=== PATIENT | male | born 1935 | race Two or more races ===

== ENCOUNTER 2017-02-18 12:59 | Inpatient (IN) | payer MEDICARE, MEDICAID ==
[~2017-02-18] VITALS: Ht 182.9 cm; Wt 88.5 kg
--- NOTE | 2017-02-18 07:15 | NUR ---
RN CLOSING NOTES PATIENT IN BED RESTING, RESPONSIVE. NO ACUTE DISTRESS, NO SOB NOTED. DENIES PAIN OR DISCOMFORT. ALL NEEDS ATTENDED AND PROVIDED. KEPT PATIENT SAFE AND COMFORTABLE. BED IN LOW POSITION, LOCKED, SIDERAILS UPX2, HOB ELEVATED. ENDORSED TO NIGHT RN FOR SHIVANI. Addendum: 02/18/17 at 1916 by NADINE MCDONALD WRONG TIME
--- NOTE | 2017-02-18 13:11 | NUR ---
EL CC SOB. AAO4. 95% RA. NON LABORED RESP 20 RR/MIN.
[2017-02-18 13:30] LABS: BASOPHILS % (AUTO) 0.1 % (0.0-2.0); EOSINOPHILS # (AUTO) 0.5 /CMM (0.0-0.7); EOSINOPHILS % (AUTO) 6.1 % (0.0-6.0); HEMATOCRIT 36 % (39-51); HEMOGLOBIN 11.7 g/dL (13.5-17.5); LYMPHOCYTES # (AUTO) 0.6 /CMM (0.8-4.8); LYMPHOCYTES % (AUTO) 7.8 % (20.0-44.0); MEAN CORPUSCULAR HEMOGLOBIN 22 PG (26.0-33.0); MEAN CORPUSCULAR HGB CONC 33 g/dl (31.0-36.0); MEAN CORPUSCULAR VOLUME 67 fL (80-96); MONOCYTES # (AUTO) 0.6 /CMM (0.1-1.30); MONOCYTES % (AUTO) 7.2 % (2.0-12.0); NEUTROPHILS % (AUTO) 78.8 % (43.0-81.0); PLATELET COUNT (AUTO) 176 /CMM (150-450); RDW COEFFICIENT OF VARIATION 18.1 (11.5-15.0); RED BLOOD CELL COUNT(AUTO) 5.32 MIL/uL (4.5-6.0); WHITE BLOOD COUNT (AUTO) 7.7 K/uL (4.3-11.0)
[2017-02-18 13:34] LABS: CALCIUM, SERUM 8.8 mg/dL (8.5-10.1); CARBON DIOXIDE 28 mmol/L (21-32); CHLORIDE 104 mmol/L (98-107); CREATININE 1.4 mg/dL (0.6-1.3); GLUCOSE 113 mg/dL (74-106); POTASSIUM 3.6 mmol/L (3.5-5.1); SODIUM SERUM 139 mmol/L (136-145); UREA NITROGEN, BLOOD 18 mg/dL (7-18)
[2017-02-18 13:43] LABS: TROPONIN I < 0.017 ng/mL (0.00-0.056)
[2017-02-18 13:46] LABS: ALANINE AMINOTRANSFERASE 11 U/L (12-78); ALBUMIN 3.2 g/dL (3.4-5.0); ALKALINE PHOSPHATASE 64 U/L (46-116); ASPARTATE AMINOTRANSFERASE 14 U/L (15-37); B-TYPE NATRIURETIC PEPTIDE 10992 PG/ML (0-125); BILIRUBIN,DIRECT 0.2 mg/dL (0.0-0.2); BILIRUBIN,TOTAL 1.1 mg/dL (0.2-1.0); TOTAL PROTEIN, SERUM 6.7 g/dL (6.4-8.2)
[2017-02-18] MEDS ORDERED: FUROSEMIDE 40 MG/4 ML VIAL IV ONE (14:00)
[2017-02-18] MEDS ORDERED: FUROSEMIDE 40 MG/4 ML VIAL ONE (14:05)
[2017-02-18 14:06] LABS: INR 1.08 (0.87-1.13); PROTHROMBIN TIME 11.2 SECS (9.5-12.7)
--- NOTE | 2017-02-18 14:24 | NUR ---
TELE ROOM 319
--- NOTE | 2017-02-18 14:54 | NUR ---
CALLED REPORT TO 3RD FLOOR TO "NADINE" CHRISTOPHER. WAITING FOR ROOM TO BE CLEANED.
[2017-02-18] MEDS ORDERED: ZOLPIDEM TARTRATE 5 MG TABLET PO PRN (15:00)
[2017-02-18] MEDS ORDERED: HYDROCODONE/APAP 5/325MG 1 EACH TABLET PO PRN (15:00)
[2017-02-18] MEDS ORDERED: ACETAMINOPHEN 325 MG TABLET PO PRN (15:00)
[2017-02-18] MEDS ORDERED: MAGNESIUM HYDROXIDE 30 ML UDC PO PRN (15:00)
[2017-02-18] MEDS ORDERED: Z GUARD REMEDY 2 OZ OINT TP PRN (15:00)
[2017-02-18] MEDS ORDERED: ONDANSETRON HCL/PF 4 MG/2 ML VIAL IVP PRN (15:00)
[2017-02-18] MEDS ORDERED: MAG HYDROX/AL HYDROX/SIMETH 30 ML UDC PO PRN (15:00)
[2017-02-18 15:30] VITALS: BP 130/72
--- NOTE | 2017-02-18 15:30 | NUR ---
RN OPENING NOTES RECEIVED PATIENT FROM ER VIA [facility]. PATIENT A/OX4, AMBULATORY. NO ACUTE DISTRESS, NO SOB NOTED. DENIES PAIN OR DISCOMFORT. ON 2LPM O2 VIA NC, SATURATION 96%. IV SITE INTACT AND PATENT. AWAITING FOR MD'S ADMITTING ORDERS. KEPT PATIENT SAFE AND COMFORTABLE. BED IN LOW, LOCKED, SIDRAILS UP X2, HOB ELEVATED. WILL CONTINUE TO MONITOR ACCORDINGLY.
[2017-02-18 16:00] VITALS: BP 132/73
[2017-02-18 16:48] LABS: EOSINOPHILS % (MANUAL) 3 % (0-4); LYMPHOCYTES % (MANUAL) 10 % (16-48); MONOCYTES % (MANUAL) 2 % (0-11.0); NEUTROPHILS % (MANUAL) 85 (42-76)
[2017-02-18] MEDS ORDERED: ALBUTEROL FS 2.5 MG/3 ML VIAL.NEB NEB PRN (17:00)
[2017-02-18 17:31] LABS: APPEARANCE,URINE CLEAR (CLEAR); BILIRUBIN,URINE NEGATIVE (NEGATIVE); BLOOD, URINE 1+ Ery/uL (NEGATIVE); COLOR,URINE YELLOW (YELLOW); KETONES,URINE NEGATIVE (NEGATIVE); LEUKOCYTE ESTERASE ,URINE NEGATIVE (NEGATIVE); NITRITE, URINE NEGATIVE (NEGATIVE); PH,URINE 5.5 (5.0-8.0); PROTEIN,URINE 1+ mg/dl (NEGATIVE); UGLUCOSE NEGATIVE (NEGATIVE); UROBILINOGEN,URINE 0.2 EU/dL (0.2)
[2017-02-18] MEDS: ENOXAPARIN SODIUM 40 MG/0.4 ML DISP.SYRIN SQ SCH (18:11)
[2017-02-18] MEDS: FUROSEMIDE 40 MG/4 ML VIAL IV SCH (18:12)
[2017-02-18] MEDS: FERROUS SULFATE (325 MG) 325 MG/TAB TABLET PO SCH (18:12)
[2017-02-18] MEDS: ASPIRIN 81 MG TAB.CHEW PO SCH (18:15)
[2017-02-18 18:39] LABS: BACTERIA,URINE Rare /HPF (None Seen); RBC,URINE 0-2 /HPF (0-2); SQUAMOUS EPITHELIAL CELL,UR Few /HPF (None Seen); WBC,URINE 0-2 /HPF (0-3)
--- NOTE | 2017-02-18 19:16 | NUR ---
RN CLOSING NOTES PATIENT IN BED RESTING, RESPONSIVE. NO ACUTE DISTRESS, NO SOB NOTED. DENIES PAIN OR DISCOMFORT. ALL NEEDS ATTENDED AND PROVIDED. KEPT PATIENT SAFE AND COMFORTABLE. BED IN LOW POSITION, LOCKED, SIDERAILS UPX2, HOB ELEVATED. ENDORSED TO NIGHT RN FOR SHIVANI.
[2017-02-18] MEDS: ALBUTEROL FS 2.5 MG/3 ML VIAL.NEB NEB SCH (19:35)
[2017-02-18 20:00] VITALS: BP 108/53
[2017-02-18] MEDS: CARVEDILOL 3.125 MG TABLET PO SCH (21:23)
[2017-02-18] MEDS: ATORVASTATIN 10 MG TABLET PO SCH (21:23)
[2017-02-19] VITALS: BP 134/67
[2017-02-19] MEDS: ALBUTEROL FS 2.5 MG/3 ML VIAL.NEB NEB SCH ×4 (01:43→20:05)
[2017-02-19 04:00] VITALS: BP 129/68
--- NOTE | 2017-02-19 05:35 | NUR ---
RN NOTES No significant change in condition. Breathing treatment given as ordered. No acute respiratory distress noted. Skin warm and dry to touch. Pain medication given as ordered, c/o generalized body pain. Monitored effectiveness. All due meds given as ordered. All needs attended. Assisted to the bathroom. Will continue to monitor.
[2017-02-19 07:18] LABS: BASOPHILS % (AUTO) 0.2 % (0.0-2.0); EOSINOPHILS # (AUTO) 0.4 /CMM (0.0-0.7); EOSINOPHILS % (AUTO) 4.5 % (0.0-6.0); HEMATOCRIT 36 % (39-51); HEMOGLOBIN 11.4 g/dL (13.5-17.5); LYMPHOCYTES # (AUTO) 0.3 /CMM (0.8-4.8); LYMPHOCYTES % (AUTO) 3.5 % (20.0-44.0); MEAN CORPUSCULAR HEMOGLOBIN 22 PG (26.0-33.0); MEAN CORPUSCULAR HGB CONC 31 g/dl (31.0-36.0); MEAN CORPUSCULAR VOLUME 69 fL (80-96); MONOCYTES # (AUTO) 0.6 /CMM (0.1-1.30); NEUTROPHILS # (AUTO) 7.9 /CMM (1.8-8.9); NEUTROPHILS % (AUTO) 84.8 % (43.0-81.0); PLATELET COUNT (AUTO) 167 /CMM (150-450); RED BLOOD CELL COUNT(AUTO) 5.27 MIL/uL (4.5-6.0); WHITE BLOOD COUNT (AUTO) 9.3 K/uL (4.3-11.0)
[2017-02-19 07:30] LABS: CALCIUM, SERUM 8.8 mg/dL (8.5-10.1); CARBON DIOXIDE 27 mmol/L (21-32); CHLORIDE 102 mmol/L (98-107); CREATININE 1.4 mg/dL (0.6-1.3); GLUCOSE 113 mg/dL (74-106); MAGNESIUM 1.7 mg/dL (1.8-2.4); PHOSPHORUS 4.1 mg/dL (2.5-4.9); POTASSIUM 3.6 mmol/L (3.5-5.1); SODIUM SERUM 138 mmol/L (136-145); UREA NITROGEN, BLOOD 23 mg/dL (7-18)
[2017-02-19 07:38] LABS: CHOLESTEROL 106 mg/dL (<200); HDL CHOLESTEROL 37 mg/dL (40-60); LDL 66 mg/dL (0-99); THYROID STIMULATING HORMONE 1.093 uIU/mL (0.358-3.74); TRIGLYCERIDES 61 mg/dL (30-150)
[2017-02-19 07:51] LABS: IRON, SERUM 21 ug/dl (50-175); TOTAL IRON BINDING CAPACITY 324 ug/dl (250-450)
--- NOTE | 2017-02-19 07:58 | NUR ---
RN INITIAL NOTES RECEIVED RESIDENT SITTING UP AT THE EDGE OF BED. A/O X4, RESPIRATIONS ARE EVEN AND UNLABORED, NOT IN ANY ACUTE DISTRESS NOTED. ASSISTED PT WITH TRANSFER FROM BED TO CHAIR. PT IS CURRENTLY RECEIVING BREATHING TX AND TOLERATING WELL. DENIES ANY PAIN AT THIS TIME. PT KEPT COMFORTABLE. REMINDED PT TO USE CALL LIGHT WHEN ASSISTANCE IS NEEDED, CALL LIGHT IS LEFT WITHIN REACH.
[2017-02-19 08:00] VITALS: BP 144/83
[2017-02-19] MEDS: FUROSEMIDE 40 MG/4 ML VIAL IV SCH ×4 (08:34→16:51)
[2017-02-19] MEDS: ASPIRIN 81 MG TAB.CHEW PO SCH (08:35)
[2017-02-19] MEDS: PANTOPRAZOLE 40 MG TABLET.DR PO SCH (08:36)
[2017-02-19] MEDS: FERROUS SULFATE (325 MG) 325 MG/TAB TABLET PO SCH (08:37)
[2017-02-19] MEDS: SENNOSIDES/DOCUSATE SODIUM 1 TAB TABLET PO SCH (08:37)
[2017-02-19] MEDS: CARVEDILOL 3.125 MG TABLET PO SCH ×2 (08:37→20:58)
[2017-02-19] MEDS: ENOXAPARIN SODIUM 40 MG/0.4 ML DISP.SYRIN SQ SCH (08:38)
[2017-02-19 09:43] LABS: TROPONIN I < 0.017 ng/mL (0.00-0.056)
[2017-02-19 09:44] VITALS: BP 144/83
--- NOTE | 2017-02-19 09:53 | NUR ---
RN NOTES CLARIFIED LASIX ORDER WITH PHARMACY, PER PHARMACY START ADMINISTRATION OF Q4H AT 1300 PT ALREADY HAD 40MG IN AM
[2017-02-19] MEDS: POTASSIUM CHLORIDE 20 MEQ TAB.PRT.SR PO SCH ×3 (10:27→11:25)
[2017-02-19] MEDS: Magnesium 1GM/D5W 100ML PREMIX 100 ML IV SCH ×2 (10:27→10:52)
[2017-02-19] MEDS: SOD FERRIC GLUC 125 MG in IV NS 0.9% 100 ML IV SCH (14:56)
[2017-02-19 15:03] LABS: APPEARANCE,URINE SL CLOUDY (CLEAR); BILIRUBIN,URINE NEGATIVE (NEGATIVE); BLOOD, URINE 2+ Ery/uL (NEGATIVE); COLOR,URINE YELLOW (YELLOW); KETONES,URINE NEGATIVE (NEGATIVE); LEUKOCYTE ESTERASE ,URINE TRACE (NEGATIVE); NITRITE, URINE NEGATIVE (NEGATIVE); PROTEIN,URINE 1+ mg/dl (NEGATIVE); UGLUCOSE NEGATIVE (NEGATIVE); UROBILINOGEN,URINE 0.2 EU/dL (0.2)
[2017-02-19 15:38] LABS: BACTERIA,URINE None seen /HPF (None Seen); SQUAMOUS EPITHELIAL CELL,UR Rare /HPF (None Seen)
[2017-02-19 15:48] LABS: EOSINOPHIL,URINE None Seen
[2017-02-19 15:53] LABS: CREATININE, URINE 114.4 MG/DL (30.0-125.0); URINE TOTAL PROTEIN 52.3 mg/dL (0-11.9)
[2017-02-19 16:00] VITALS: BP 148/74
--- NOTE | 2017-02-19 17:55 | NUR ---
patient lives at home with his best friend. Prior to admission, patient was ambulatory and independent with adls'.He has a cane and a walker which he utilized as needed for mobility. Current plan is to return home once discharge. Addendum: 02/19/17 at 1756 by ANASTACIA MARTINEZ RN Amended: Links added.
--- NOTE | 2017-02-19 18:50 | NUR ---
RN MS CLOSING NOTES ALL NEEDS MET AND ANTICIPATED. A/O X3, RESPIRATIONS ARE EVEN AND UNLABORED. NOT IN ANY ACUTE DISTRESS NOTED. CONTINUES ON O2 @3L/MIN VIA NC, SATURATING ABOVE 93%. HOB KEPT ELEVATED TO FACILITATE BREATHING, ENCOURAGED PT TO PERFORM PURSED LIP BREATHING WHEN FEELING SHORT OF BREATH. PT ABLE TO PERFORM RETURN DEMONSTRATION. PT DENIES ANY AT THIS TIME. ENCOURAGED RESIDENT TO ELEVATE BLE WHILE IN BED TO DECREASE EDEMA, PT IS COMPLIANT. WILL ENDORSE TO NEXT SHIFT FOR CONTINUITY OF CARE.
--- NOTE | 2017-02-19 19:30 | NUR ---
MS RN NOTES RECEIVED SITTING ON EDGE OF BED,A/O X 2,BREATHING NON LABORED,O2 SAT 94$ ON 4L/NC.SALINE LOCK LEFT HAND INTACT AND PATENT.NOTED ON AND OFF PRODUCTIVE COUGH,RT AT BEDSIDE,TO ADMINISTER BREATHING TREATMENT SCHEDULED.ABLE TO WALK TO THE BATHROOM WITH ASSIST.FALL PRECAUTION OBSERVED,BED ON LOWEST POSITION AND LOCKED.CALL LIGHT IN REACH,NEEDS ANTICIPATED.
[2017-02-19 20:00] VITALS: BP 131/61
[2017-02-19] MEDS: ATORVASTATIN 10 MG TABLET PO SCH (20:58)
--- NOTE | 2017-02-19 21:19 | NUR ---
MS RN NOTES C/O NAUSEA,MEDICATED WITH ZOFRAN 4MG IVP ORDERED.
--- NOTE | 2017-02-19 22:30 | NUR ---
MS RN NOTES SITTING ON CHAIT THIS TIME,CLAIMED HE FEELS BETTER WHEN SITTING
--- NOTE | 2017-02-20 01:30 | NUR ---
MS RN NOTES RT AT BEDSIDE TO ADMINISTER BREATHING TREATMENT SCHEDULED
[2017-02-20] MEDS: ALBUTEROL FS 2.5 MG/3 ML VIAL.NEB NEB SCH ×4 (01:51→20:03)
--- NOTE | 2017-02-20 04:00 | NUR ---
MS RN NOTES SLEEPING,NOT IN ANY FORM OF DISTRESS,KEPT WARM AND COMFORTABLE.
--- NOTE | 2017-02-20 06:11 | NUR ---
MS RN NOTES STILL WITH ON AND OFF PRODUCTIVE COUGH,MILD CONGESTION.MANAGE WITH BREATHING TREATMENT SCHEDULED.SLEPT WITH INTERVALS.O2 IN USED.DAILY WEIGHT DONE AND RECORDED.STRICT I AND O'S EMPHASIZED.CALL LIGHT IN REACH.WILL CONTINUE TO MONITOR BREATHING STATUS.WILL ENDORSE TO DAY NURSE FOR SHIVANI.
[2017-02-20 06:43] LABS: EOSINOPHILS # (AUTO) 0.3 /CMM (0.0-0.7); EOSINOPHILS % (AUTO) 3.5 % (0.0-6.0); HEMATOCRIT 38 % (39-51); HEMOGLOBIN 11.9 g/dL (13.5-17.5); LYMPHOCYTES # (AUTO) 0.3 /CMM (0.8-4.8); LYMPHOCYTES % (AUTO) 2.8 % (20.0-44.0); MEAN CORPUSCULAR HEMOGLOBIN 22 PG (26.0-33.0); MEAN CORPUSCULAR HGB CONC 32 g/dl (31.0-36.0); MEAN CORPUSCULAR VOLUME 69 fL (80-96); MONOCYTES # (AUTO) 0.6 /CMM (0.1-1.30); MONOCYTES % (AUTO) 6.3 % (2.0-12.0); NEUTROPHILS # (AUTO) 8.3 /CMM (1.8-8.9); NEUTROPHILS % (AUTO) 87.4 % (43.0-81.0); PLATELET COUNT (AUTO) 170 /CMM (150-450); RDW COEFFICIENT OF VARIATION 19.5 (11.5-15.0); RED BLOOD CELL COUNT(AUTO) 5.47 MIL/uL (4.5-6.0); WHITE BLOOD COUNT (AUTO) 9.5 K/uL (4.3-11.0)
[2017-02-20 07:30] LABS: ALANINE AMINOTRANSFERASE 12 U/L (12-78); ALKALINE PHOSPHATASE 60 U/L (46-116); ASPARTATE AMINOTRANSFERASE 19 U/L (15-37); BILIRUBIN,TOTAL 1.1 mg/dL (0.2-1.0); CALCIUM, SERUM 8.5 mg/dL (8.5-10.1); CARBON DIOXIDE 30 mmol/L (21-32); CHLORIDE 102 mmol/L (98-107); CREATININE 1.6 mg/dL (0.6-1.3); GLUCOSE 112 mg/dL (74-106); MAGNESIUM 2.1 mg/dL (1.8-2.4); PHOSPHORUS 4.1 mg/dL (2.5-4.9); SODIUM SERUM 139 mmol/L (136-145); TOTAL PROTEIN, SERUM 6.8 g/dL (6.4-8.2); UREA NITROGEN, BLOOD 34 mg/dL (7-18)
[2017-02-20 07:33] LABS: TROPONIN I < 0.017 ng/mL (0.00-0.056)
--- NOTE | 2017-02-20 07:39 | NUR ---
RN MS INITIAL NOTES RECEIVED PT SITTING UP IN BED. AWAKE, ALERT AND ORIENTED X3. RESPIRATIONS ARE EVEN AND UNLABORED, NOT IN ANY ACUTE DISTRESS NOTED. CURRENTLY ON O2 @3L/MIN VIA NC, SATURATING AT 93%. DENIES ANY PAIN AT THIS TIME. ABLE TO PERFORM AROM TO BUE AND BLE. REMINDED PT TO USE CALL LIGHT WHEN ASSISTANCE IS NEEDED. WILL CONTINUE TO MONITOR DURING SHIFT.
[2017-02-20 08:00] VITALS: BP 159/78
[2017-02-20] MEDS: SENNOSIDES/DOCUSATE SODIUM 1 TAB TABLET PO SCH (08:42)
[2017-02-20] MEDS: ASPIRIN 81 MG TAB.CHEW PO SCH (08:42)
[2017-02-20] MEDS: PANTOPRAZOLE 40 MG TABLET.DR PO SCH (08:42)
[2017-02-20] MEDS: CARVEDILOL 3.125 MG TABLET PO SCH ×2 (08:43→20:29)
[2017-02-20] MEDS: ENOXAPARIN SODIUM 40 MG/0.4 ML DISP.SYRIN SQ SCH (08:44)
[2017-02-20] MEDS: FUROSEMIDE 100 MG/10 ML VIAL IV SCH ×3 (09:19→17:04)
--- NOTE | 2017-02-20 10:38 | NUR ---
WOUND CARE CONSULT: PT REFUSED SKIN ASSESSMENT. WILL SEE PRN. PT FOLOWED BY PODIATRY.
[2017-02-20 10:47] LABS: BAND % (MANUAL) 4 % (0.0-5.0); EOSINOPHILS % (MANUAL) 4 % (0-4); LYMPHOCYTES % (MANUAL) 5 % (16-48); MONOCYTES % (MANUAL) 4 % (0-11.0); NEUTROPHILS % (MANUAL) 83 (42-76)
[2017-02-20 12:55] LABS: CREATINE KINASE, TOTAL 191 U/L (39-308)
[2017-02-20] MEDS: SOD FERRIC GLUC 125 MG in IV NS 0.9% 100 ML IV SCH (13:44)
[2017-02-20 16:00] VITALS: BP 149/80
--- NOTE | 2017-02-20 18:33 | NUR ---
RN MS CLOSING NOTE ALL NEEDS MET AND RENDERED. PT REMAINS IN STABLE CONDITION. REMAINS A/O X3, RESPIRATIONS ARE EVEN AND UNLABORED, NOT IN ANY ACUTE DISTRESS NOTED. RECEIVING LASIX AND PT ABLE TO URINATE WITHOUT DIFFICULTIES. ENCOURAGED PT TO CONTINUE TO ELEVATE BLE TO DECREASE SWELLING. REMINDED PT TO USE CALL LIGHT WHEN ASSISTANCE IS NEEDED. CALL LIGHT IS LEFT WITHIN REACH. WILL ENDORSE TO NEXT SHIFT FOR CONTINUITY OF CARE.
--- NOTE | 2017-02-20 19:30 | NUR ---
RN MS - INITIAL NOTES RECEIVED PATIENT IN BED, ALERT AND ORIENTED X2-3. NO S/S OF SOB OR ANY DISCOMFORT NOTED. PATIENT INSTRUCTED TO USE CALL LIGHT WHEN ASSISTANCE IS NEEDED. BED IN LOW POSITION AND LOCKED. SIDERAILS X2 UP. WILL CONTINUE TO MONITOR PATIENT.
[2017-02-20 20:00] VITALS: BP 138/57
[2017-02-20] MEDS: ATORVASTATIN 10 MG TABLET PO SCH (20:29)
[2017-02-21] MEDS: ALBUTEROL FS 2.5 MG/3 ML VIAL.NEB NEB SCH ×4 (02:02→19:46)
--- NOTE | 2017-02-21 06:45 | NUR ---
RN MS - CLOSING NOTES PATIENT CURRENTLY IN CHAIR. ALERT AND ORIENTED X3. NO S/S OF SOB OR ANY DISCOMFORT NOTED. PER PATIENT, HE IS MORE COMFORTABLE IN CHAIR AND BREATHE A LOT BETTER COMPARED WHEN HE WAS IN THE BED. CALL LIGHT IS WITHIN REACH. WILL ENDORSE TO MORNING NURSE FOR CONTINUITY OF CARE.
[2017-02-21 07:46] LABS: BASOPHILS % (AUTO) 0.2 % (0.0-2.0); EOSINOPHILS # (AUTO) 0.4 /CMM (0.0-0.7); EOSINOPHILS % (AUTO) 5.8 % (0.0-6.0); HEMATOCRIT 36 % (39-51); HEMOGLOBIN 11.5 g/dL (13.5-17.5); LYMPHOCYTES # (AUTO) 0.3 /CMM (0.8-4.8); LYMPHOCYTES % (AUTO) 3.9 % (20.0-44.0); MEAN CORPUSCULAR HEMOGLOBIN 22 PG (26.0-33.0); MEAN CORPUSCULAR HGB CONC 32 g/dl (31.0-36.0); MEAN CORPUSCULAR VOLUME 70 fL (80-96); MONOCYTES # (AUTO) 0.6 /CMM (0.1-1.30); MONOCYTES % (AUTO) 8.6 % (2.0-12.0); NEUTROPHILS # (AUTO) 5.6 /CMM (1.8-8.9); NEUTROPHILS % (AUTO) 81.5 % (43.0-81.0); PLATELET COUNT (AUTO) 195 /CMM (150-450); RDW COEFFICIENT OF VARIATION 19.5 (11.5-15.0); RED BLOOD CELL COUNT(AUTO) 5.23 MIL/uL (4.5-6.0); WHITE BLOOD COUNT (AUTO) 6.9 K/uL (4.3-11.0)
[2017-02-21 07:57] LABS: ALANINE AMINOTRANSFERASE 15 U/L (12-78); ALBUMIN 2.9 g/dL (3.4-5.0); ALKALINE PHOSPHATASE 60 U/L (46-116); ASPARTATE AMINOTRANSFERASE 18 U/L (15-37); BILIRUBIN,TOTAL 1.1 mg/dL (0.2-1.0); CALCIUM, SERUM 8.9 mg/dL (8.5-10.1); CARBON DIOXIDE 33 mmol/L (21-32); CHLORIDE 101 mmol/L (98-107); CREATININE 1.8 mg/dL (0.6-1.3); GLUCOSE 112 mg/dL (74-106); MAGNESIUM 2.1 mg/dL (1.8-2.4); PHOSPHORUS 3.7 mg/dL (2.5-4.9); POTASSIUM 3.6 mmol/L (3.5-5.1); SODIUM SERUM 139 mmol/L (136-145); TOTAL PROTEIN, SERUM 6.7 g/dL (6.4-8.2); UREA NITROGEN, BLOOD 44 mg/dL (7-18)
[2017-02-21 08:00] VITALS: BP 101/63
--- NOTE | 2017-02-21 08:08 | NUR ---
RN OPENING NOTES RECEIVED PATIENT AWAKE SITTING IN CHAIR AT THE BEDSIDE. DENIES CP. DENIES SOB. NO PAIN AT THIS TIME. ON 3LPM NC SATURATING ADEQUATELY. RESPIRATIONS EVEN AND UNLABORED. NO ACUTE DISTRESS. LEFT HAND 22G PATENT AND INTACT. BED LOCKED IN THE LOWEST POSITION. SIDE RAILS UP X2. CALL LIGHT WITHIN REACH. WILL CONTINUE TO MONITOR, ASSESS AND EDUCATE PATIENT THROUGHOUT SHIFT.
--- NOTE | 2017-02-21 08:55 | NUR ---
RN NOTES SATURATING AT 91% ON RA. AMBULATED UP AND DOWN THE HALLWAY WITH WALKER. STEADY GATE. O2 SAT 85-87%. PATIENT PLACED BACK IN ROOM ON 2LPM SATURATING AT 94%.
[2017-02-21] MEDS: CARVEDILOL 3.125 MG TABLET PO SCH ×2 (09:00→21:29)
[2017-02-21] MEDS: SENNOSIDES/DOCUSATE SODIUM 1 TAB TABLET PO SCH (09:59)
[2017-02-21] MEDS: FUROSEMIDE 40 MG TABLET PO SCH (10:00)
[2017-02-21] MEDS: ASPIRIN 81 MG TAB.CHEW PO SCH (10:00)
[2017-02-21] MEDS: PANTOPRAZOLE 40 MG TABLET.DR PO SCH (10:00)
[2017-02-21] MEDS: POTASSIUM CHLORIDE 20 MEQ TAB.PRT.SR PO SCH (10:00)
[2017-02-21] MEDS: ENOXAPARIN SODIUM 40 MG/0.4 ML DISP.SYRIN SQ SCH (10:05)
--- NOTE | 2017-02-21 10:08 | NUR ---
RN NON ADMIN NOTES PATIENT IS HYPOTENSIVE. HELD COREG FOR POTENTIAL WORSENING HYPOTENSION
[2017-02-21 11:11] LABS: PTH, INTACT 94 pg/mL (15-65)
[2017-02-21 12:11] LABS: *HGBFR CHEMOGLOBIN SOLUBILITY Negative (Negative); *HGBFRC HEMOGLOBIN A 97.7 % (96.4-98.8); *HGBFRC HEMOGLOBIN A2 2.3 % (1.8-3.2)
[2017-02-21] MEDS: SOD FERRIC GLUC 125 MG in IV NS 0.9% 100 ML IV SCH (15:10)
[2017-02-21 16:00] VITALS: BP 110/51
--- NOTE | 2017-02-21 19:25 | NUR ---
RN CLOSING NOTES PATIENT SITTING IN CHAIR AT THE BEDSIDE. DENIES CP. DENIES SOB. NO PAIN AT THIS TIME. ON 2LPM NC SATURATING ADEQUATELY. RESPIRATIONS EVEN AND UNLABORED. NO ACUTE DISTRESS. ALL NEEDS MET ALL MEDS GIVEN APPROPRIATE. BED LOCKED IN THE LOWEST POSITION. SIDE RAILS UP X2. CALL LIGHT WITHIN REACH. WILL ENDORSE TO NIGHT RN FOR SHIVANI.
--- NOTE | 2017-02-21 19:35 | NUR ---
RN OPENING NOTES PT AWAKE AND RESTING ON A CHAIR AT BEDSIDE. PT ABLE TO AMBULATE WITH ASSISTANCE. NO COMPLAINTS OF PAIN, SOB, OR DISTRESS AT THIS TIME. PT HAS A L HAND #22 IV, INTACT AND PATENT. SAFETY PRECAUTIONS IN PLACE. BED IN LOW, LOCKED POSITION [id number] UP. CALL LIGHT WITHIN REACH. WILL CONTINUE TO MONITOR.
[2017-02-21 20:00] VITALS: BP 103/63
--- NOTE | 2017-02-21 20:00 | NUR ---
RN NOTES PER ADRIANA FLORES. PT REFUSED VITAL SIGNS (0000 AND 0400) Q4HR. PT STATED THAT HE WANTED UNDISTURBED SLEEP. PRIOR VITAL SIGNS WITHIN NORMAL RANGE. PT CONTINUES TO BE TELE MONITORED. Addendum: 02/22/17 at 0654 by KOLBY GARCIA RN INCORRECT PATIENT. WILL ADD NOTE TO CORRECT PATIENT.
[2017-02-21] MEDS: ATORVASTATIN 10 MG TABLET PO SCH (21:29)
[2017-02-22] MEDS: ALBUTEROL FS 2.5 MG/3 ML VIAL.NEB NEB SCH ×4 (01:56→20:03)
--- NOTE | 2017-02-22 06:52 | NUR ---
RN CLOSING NOTES PT SLEEPING IN BED. NO APPARENT SIGNS OR SYMPTOMS OF PAIN, SOB, OR DISTRESS. PT SLEPT WELL THROUGHOUT THE NIGHT. PT ABLE TO AMBULATE TO THE BEDSIDE COMMODE WITH WALKER. PT HAS A L HAND #22 IV, INTACT AND PATENT. SAFETY PRECAUTIONS IN PLACE. BED IN LOW, LOCKED POSITION [id number] UP. CALL LIGHT WITHIN REACH. WILL ENDORSE TO DAY SHIFT NURSE FOR CONTINUITY OF CARE.
--- NOTE | 2017-02-22 07:36 | NUR ---
RN OPENING NOTES RECEIVED PATIENT RESTING COMFORTABLY IN BED. DENIES CP. DENIES SOB. STATES HE HAS SOME MILD FLANK PAIN. ON 2LPM NC SATURATING ADEQUATELY. RESPIRATIONS EVEN AND UNLABORED. NO ACUTE DISTRESS. LEFT HAND 22G PATENT AND INTACT. BED LOCKED IN THE LOWEST POSITION. SIDE RAILS UP X2. CALL LIGHT WITHIN REACH. WILL CONTINUE TO MONITOR, ASSESS AND EDUCATE PATIENT THROUGHOUT SHIFT.
[2017-02-22 08:00] VITALS: BP 122/69
[2017-02-22 08:09] LABS: *SPE A/G RATIO 1.1 (0.7-1.7); *SPE ALBUMIN 3.2 g/dL (2.9-4.4); *SPE ALPHA-1-GLOBULIN 0.3 g/dL (0.0-0.4); *SPE ALPHA-2-GLOBULIN 0.8 g/dL (0.4-1.0); *SPE BETA GLOBULIN 0.8 g/dL (0.7-1.3); *SPE GLOBULIN, TOTAL 2.9 g/dL (2.2-3.9); *SPE M-SPIKE Not Observed g/dL (Not Observed); *SPEGAMMA GLOBULIN 0.9 g/dL (0.4-1.8)
[2017-02-22] MEDS: FUROSEMIDE 40 MG TABLET PO SCH (09:30)
[2017-02-22] MEDS: ASPIRIN 81 MG TAB.CHEW PO SCH (09:30)
[2017-02-22] MEDS: POTASSIUM CHLORIDE 20 MEQ TAB.PRT.SR PO SCH (09:30)
[2017-02-22] MEDS: PANTOPRAZOLE 40 MG TABLET.DR PO SCH (09:31)
[2017-02-22] MEDS: SENNOSIDES/DOCUSATE SODIUM 1 TAB TABLET PO SCH (09:31)
[2017-02-22] MEDS: CARVEDILOL 3.125 MG TABLET PO SCH ×2 (09:31→21:02)
[2017-02-22] MEDS: ENOXAPARIN SODIUM 40 MG/0.4 ML DISP.SYRIN SQ SCH (09:32)
[2017-02-22] MEDS ORDERED: CARV3.122 PO (12:16)
[2017-02-22] MEDS ORDERED: POTA20TA83 PO (12:16)
[2017-02-22] MEDS ORDERED: FURO40TA5 PO (12:16)
[2017-02-22] MEDS ORDERED: ATOR10TA PO (12:16)
[2017-02-22] MEDS ORDERED: ASPI-1169 PO (12:16)
[2017-02-22] MEDS ORDERED: FLU VACC QS 2017-18(36MOS+)/PF 0.5 ML DISP.SYRIN IM ONE ×2 (13:30→19:00)
[2017-02-22] MEDS: SOD FERRIC GLUC 125 MG in IV NS 0.9% 100 ML IV SCH (15:50)
--- NOTE | 2017-02-22 18:33 | NUR ---
RN NON ADMIN NOTES unable to pull flu shot from [facility]. passed 1 hr. will non admin and new order will be placed by pharmacy maddy.
--- NOTE | 2017-02-22 19:01 | NUR ---
RN NOTES NEW ORDER FOR FLU SHOT PLACED BY PHARMACIST HODA. FLU SHOT GIVEN. LOT #[id number] EXP 08/31/17
--- NOTE | 2017-02-22 19:02 | NUR ---
RN CLOSING NOTES PATIENT RESTING COMFORTABLY IN BED. DENIES CP. DENIES SOB. NO PAIN AT THIS TIME. ON RA SATURATING ADEQUATELY. RESPIRATIONS EVEN AND UNLABORED. NO ACUTE DISTRESS. ALL NEEDS MET ALL MEDS GIVEN APPROPRIATE. BED LOCKED IN THE LOWEST POSITION. SIDE RAILS UP X2. CALL LIGHT WITHIN REACH. WILL ENDORSE TO NIGHT RN FOR SHIVANI.
--- NOTE | 2017-02-22 19:30 | NUR ---
MS RN NOTES RECEIVED SITTING ON EDGE OF BED,A/O X3,FORGETFUL.BREATHING TREATMENT JUST DONE.NO WHEEZING NOTED,AMBULATE INSIDE THE ROOM.SALINE RFA INTACT AND PATENT.PER REPORT,PATIENT IS FOR D/C,CANT CONTACT FAMILY MEMBER,NOR FRIEND WHERE HE LEAVES IN.THAT CO FOUNDER AND CHIEF STRATEGY OFFICER WITH TAKE CARE OF IT TOMORROW FOR PLACEMENT.WILL CONTINUE TO MONITOR STATUS.
--- NOTE | 2017-02-22 19:45 | NUR ---
MS RN NOTES ROSA M,HIS FRIEND CALL ASKING FOR PATIENT STATUS.WAS INFORMED THAT OSCAREE IS D/C ALREADY AND DAVID GET HOLD OF HER.SHE SAID DAVID FORMULATION TECHNICIAN PATIENT TONIGHT.WILL FORMULATION TECHNICIAN PATIENT TOMORROW AFTER LUNCH.DAHLIA NURSE MADE AWARE.
[2017-02-22 20:00] VITALS: BP 131/77
[2017-02-22] MEDS: ATORVASTATIN 10 MG TABLET PO SCH (21:02)
--- NOTE | 2017-02-23 02:15 | NUR ---
MS RN NOTES AWAKE,WALKS AROUND WITH WALKER WITH STEADY GAIT,NOTED COUGH EPISODE,PRODUCTIVE.RT CALLED TO ADMINISTER BREATHING TREATMENT SCHEDULED.
[2017-02-23] MEDS: ALBUTEROL FS 2.5 MG/3 ML VIAL.NEB NEB SCH ×3 (02:33→13:30)
--- NOTE | 2017-02-23 07:10 | NUR ---
MS RN NOTES NO SIGNIFICANT CHANGE IN STATUS.NO RESPIRATORY PROBLEM NOTED.FOLLOW COMMAND AND SIMPLE INSTRUCTIONS.FOR D/C HOME TODAY GENEVIEVE GRAIN GRADER BY ROSA M [id number] AFTER LUNCH TIME.CHARGE NURSE AWARE.WILL ENDORSE TO DAY NURSE FOR SHIVANI.
--- NOTE | 2017-02-23 07:35 | NUR ---
MS RN RECEIVED ON BED, AWAKE,ALERT,ORIENTED X3,NOT IN ANY FORM OF DISTRESS, RESPIRATIONS EVEN AND UNLABORED,NO SOB NOTED, LUNGS ARE CLEAR,ABDOMEN SOFT,POSITIVE BOWEL SOUNDS, DENIES PAIN AT THIS TIME, WILL MONITOR PATIENT'S CONDITION.
[2017-02-23 08:00] VITALS: BP 156/95
--- NOTE | 2017-02-23 08:30 | NUR ---
MS WHITE BREAKFAST SERVED,DUE MEDS GIVEN,TOLERATED WELL. WILL MONITOR PATIENT'S CONDITION.
[2017-02-23] MEDS: ASPIRIN 81 MG TAB.CHEW PO SCH (08:32)
[2017-02-23] MEDS: POTASSIUM CHLORIDE 20 MEQ TAB.PRT.SR PO SCH (08:32)
[2017-02-23] MEDS: PANTOPRAZOLE 40 MG TABLET.DR PO SCH (08:32)
[2017-02-23] MEDS: FUROSEMIDE 40 MG TABLET PO SCH (08:32)
[2017-02-23] MEDS: SENNOSIDES/DOCUSATE SODIUM 1 TAB TABLET PO SCH (08:32)
[2017-02-23 08:33] VITALS: BP 156/95
[2017-02-23] MEDS: CARVEDILOL 3.125 MG TABLET PO SCH (08:33)
[2017-02-23] MEDS: ENOXAPARIN SODIUM 40 MG/0.4 ML DISP.SYRIN SQ SCH (08:38)
--- NOTE | 2017-02-23 11:00 | NUR ---
MS RN WAITING FOR THE FRIEND TO PICK HIM UP.
[2017-02-23] MEDS: SOD FERRIC GLUC 125 MG in IV NS 0.9% 100 ML IV SCH (14:32)
--- NOTE | 2017-02-23 15:00 | NUR ---
MS COKE HANDLING SUPERVISOR INSTRUCTIONS GIVEN, WAS AUTO TRANSMISSION TECHNICIAN BY FRIEND,NO DISTRESS NOTED.
== END 2017-02-23 15:00 | disposition home or self-care (01) | DRG 291 ==
LOC: ER 13:01 → TELE 14:38 → MED 02-19 09:04
PROVIDERS: ADMIT Internal Medicine; ATTEND Internal Medicine
DX: I13.0 Hypertensive heart and chronic kidney disease with heart failure and stage 1 through stage 4 chronic kidney disease, or unspecified chronic kidney disease (principal); J96.01 Acute respiratory failure with hypoxia; N17.9 Acute kidney failure, unspecified; E46 Unspecified protein-calorie malnutrition; D69.2 Other nonthrombocytopenic purpura; E83.42 Hypomagnesemia; J44.9 Chronic obstructive pulmonary disease, unspecified; D63.8 Anemia in other chronic diseases classified elsewhere; I48.2 Chronic atrial fibrillation; D50.9 Iron deficiency anemia, unspecified; I50.43 Acute on chronic combined systolic (congestive) and diastolic (congestive) heart failure; E66.9 Obesity, unspecified; E78.5 Hyperlipidemia, unspecified; I25.10 Atherosclerotic heart disease of native coronary artery without angina pectoris; K21.9 Gastro-esophageal reflux disease without esophagitis; Z87.891 Personal history of nicotine dependence; Z95.0 Presence of cardiac pacemaker; Z68.26 Body mass index [BMI] 26.0-26.9, adult; S80.812A Abrasion, left lower leg, initial encounter; S80.811A Abrasion, right lower leg, initial encounter; X58.XXXA Exposure to other specified factors, initial encounter; Y93.9 Activity, unspecified; Y92.009 Unspecified place in unspecified non-institutional (private) residence as the place of occurrence of the external cause; I83.93 Asymptomatic varicose veins of bilateral lower extremities; N18.9 Chronic kidney disease, unspecified; S40.812A Abrasion of left upper arm, initial encounter; S40.811A Abrasion of right upper arm, initial encounter; Y33.XXXA Other specified events, undetermined intent, initial encounter
CPT/HCPCS: 36415; 71010-TC; 76770-TC; 80048-TC; 80053-TC; 80061-TC; 80076-TC; 81000-TC; 82306; 82550-TC; 82570-TC; 82746; 83021; 83540-TC; 83735-TC; 83880; 83970; 84100-TC; 84155; 84155-TC; 84165; 84300-TC; 84439-TC; 84443-TC; 84484-TC; 85025-TC; 85378-TC; 85660; 85730-TC; 87081-TC; 93307-TC; 94799-TC; A4606; J1650; J1940; J2405; J2916; J3475; J7030; Q2036; Z7610

== ENCOUNTER 2017-09-02 10:55 | Inpatient (IN) | payer MEDICARE, MEDICAID ==
[~2017-09-02] VITALS: Ht 180.3 cm; Wt 93.9 kg
[~2017-09-02 10:55] MED LIST: ASPI-1169 PO; ATOR10TA PO; CARV3.122 PO; FURO40TA5 PO; POTA20TA83 PO
--- NOTE | 2017-09-02 11:00 | NUR ---
BBRA 39 FROM PMD'S OFFICE FOR ABD PAIN AND LOW BP. BS 152 IN FIELD. PATIENT IS A/OX 3, PRESENTS WITH GENERALIZED WEAKNESS. BREATHING EVEN AND UNLABORED. NO SOB, NAD, VITALS STABLE. SAFETY AND COMFORT MEASURES IN PLACE. AWAITING MD ORDERS.
[2017-09-02 11:28] LABS: BASOPHILS % (AUTO) 0.4 % (0.0-2.0); EOSINOPHILS % (AUTO) 9.4 % (0.0-6.0); HEMATOCRIT 38 % (39-51); HEMOGLOBIN 12.6 g/dL (13.5-17.5); LYMPHOCYTES # (AUTO) 0.6 /CMM (0.8-4.8); LYMPHOCYTES % (AUTO) 9.3 % (20.0-44.0); MEAN CORPUSCULAR HEMOGLOBIN 26 PG (26.0-33.0); MEAN CORPUSCULAR HGB CONC 34 g/dl (31.0-36.0); MEAN CORPUSCULAR VOLUME 79 fL (80-96); MONOCYTES # (AUTO) 0.4 /CMM (0.1-1.30); MONOCYTES % (AUTO) 5.7 % (2.0-12.0); NEUTROPHILS % (AUTO) 75.2 % (43.0-81.0); PLATELET COUNT (AUTO) 179 /CMM (150-450); RDW COEFFICIENT OF VARIATION 16.7 (11.5-15.0); WHITE BLOOD COUNT (AUTO) 6.6 K/uL (4.3-11.0)
[2017-09-02] MEDS ORDERED: IV NS 0.9% 1,000 ML BAG IV ONE (11:30)
[2017-09-02 11:38] LABS: CALCIUM, SERUM 8.7 mg/dL (8.5-10.1); CARBON DIOXIDE 26 mmol/L (21-32); CHLORIDE 106 mmol/L (98-107); CREATININE 1.4 mg/dL (0.6-1.3); GLUCOSE 122 mg/dL (74-106); POTASSIUM 3.5 mmol/L (3.5-5.1); SODIUM SERUM 140 mmol/L (136-145); UREA NITROGEN, BLOOD 22 mg/dL (7-18)
[2017-09-02 11:43] LABS: INR 1.02 (0.85-1.15)
[2017-09-02 11:47] LABS: ALANINE AMINOTRANSFERASE 12 U/L (12-78); ALBUMIN 2.8 g/dL (3.4-5.0); ALKALINE PHOSPHATASE 64 U/L (46-116); ASPARTATE AMINOTRANSFERASE 11 U/L (15-37); BILIRUBIN,DIRECT 0.2 mg/dL (0.0-0.2); BILIRUBIN,TOTAL 0.5 mg/dL (0.2-1.0); TOTAL PROTEIN, SERUM 6.1 g/dL (6.4-8.2)
[2017-09-02 11:52] LABS: TROPONIN I < 0.017 ng/mL (0.00-0.056)
--- NOTE | 2017-09-02 12:14 | NUR ---
CALLED [facility] STANDARDS ANALYST WAS PAGED.
[2017-09-02] MEDS ORDERED: SPIR25TA4 PO (12:17)
[2017-09-02] MEDS ORDERED: HYDR-4075 PO (12:17)
[2017-09-02] MEDS ORDERED: FEBU80TA PO (12:17)
[2017-09-02] MEDS ORDERED: OLME1TAB40 PO (12:17)
[2017-09-02] MEDS ORDERED: ESOM40CA PO (12:17)
[2017-09-02] MEDS ORDERED: PRAV40TA3 PO (12:17)
[2017-09-02] MEDS ORDERED: OMEG1CAP40 PO (12:17)
[2017-09-02] MEDS ORDERED: ATEN50TA PO (12:17)
[2017-09-02] MEDS ORDERED: ASPI-1169 PO (12:17)
[2017-09-02] MEDS ORDERED: MEMA21CA PO (12:17)
[2017-09-02] MEDS ORDERED: MELO-107 PO (12:17)
[2017-09-02] MEDS ORDERED: DONE10TA44 PO (12:17)
[2017-09-02 12:24] LABS: BILIRUBIN,URINE Negative (NEGATIVE); BLOOD, URINE Negative Ery/uL (NEGATIVE); COLOR,URINE Yellow (YELLOW); KETONES,URINE Negative (NEGATIVE); LEUKOCYTE ESTERASE ,URINE Trace (NEGATIVE); NITRITE, URINE Negative (NEGATIVE); PROTEIN,URINE Negative (NEGATIVE); UGLUCOSE Negative (NEGATIVE); UROBILINOGEN,URINE 0.2 EU/dL (0.2)
[2017-09-02 12:26] LABS: APPEARANCE,URINE Slightly Hazy (CLEAR)
[2017-09-02 12:35] LABS: BACTERIA,URINE Rare /HPF (None Seen); RBC,URINE NONE SEEN /HPF (0-2); SQUAMOUS EPITHELIAL CELL,UR None Seen /HPF (None Seen); WBC,URINE 0-2 /HPF (0-3)
[2017-09-02 12:36] LABS: HYALINE CASTS, URINE Moderate /LPF (None Seen)
--- NOTE | 2017-09-02 13:31 | NUR ---
REPORT GIVEN TO SHAWNEE WHITE FOR SHIVANI UPON ADMISSION.
[2017-09-02 14:30] VITALS: BP 120/70
--- NOTE | 2017-09-02 14:30 | NUR ---
RN NOTE RECEIVED PT ON BED, AOX2, ON TELEMONITOR V PACING, 80 BPM, IV IN L HAND 20 G, INTACT, SAFETY MEASURES IN PLACE, CALL LIGHT WITHIN REACH, URINAL PROVIDED, BED IN LOW AND LOCKED POSITION, BED ALALRM ON. WILL CARRY OUT ADMITTING ORDERS.
--- NOTE | 2017-09-02 14:40 | NUR ---
PATIENT TRANSPORTED TO [facility] VIA [facility]. KEVIN WHITE TO PROVIDE SHIVANI.
[2017-09-02] MEDS ORDERED: ACETAMINOPHEN 325 MG TABLET PO PRN (15:30)
[2017-09-02] MEDS ORDERED: MAG HYDROX/AL HYDROX/SIMETH 30 ML UDC PO PRN (15:30)
[2017-09-02] MEDS ORDERED: ONDANSETRON HCL/PF 4 MG/2 ML VIAL IVP PRN (15:30)
[2017-09-02] MEDS ORDERED: HYDROCODONE/APAP 5/325MG 1 EACH TABLET PO PRN (15:30)
[2017-09-02] MEDS ORDERED: Z GUARD REMEDY 2 OZ OINT TP PRN (15:30)
[2017-09-02] MEDS ORDERED: ZOLPIDEM TARTRATE 5 MG TABLET PO PRN (15:30)
[2017-09-02 16:00] VITALS: BP 120/70
[2017-09-02] MEDS: IV NS 0.9% 1,000 ML IV PRN (16:28)
[2017-09-02 17:45] VITALS: BP 119/75
[2017-09-02 17:46] VITALS: BP 114/71
[2017-09-02 17:47] VITALS: BP 125/72
[2017-09-02] MEDS: MEMANTINE HCL 5 MG TABLET PO SCH (18:09)
--- NOTE | 2017-09-02 19:30 | NUR ---
TELE/RN NOTES: RECEIVED PT. IN BED W/ HOB ELEVATED. A/O X 4. RESPIRATIONS EVEN AND UNLABORED. RA SAT 95%. DENIES ANY C/O CHEST PAIN OR SOB AT PRESENT. ON TELE MONITOR W/ V PACING 80. LEFT HAND G 20 PATENT AND INTACT W/ NS @ 75 ML/HR. CONTINENT OF B/B. USES URINAL. WILL CONTINUE TO MONITOR. CALL LIGHT W/ REACH.
[2017-09-02] MEDS: HEPARIN SODIUM, PORCINE 5000 UNITS/1 ML VIAL SQ SCH (21:34)
[2017-09-02] MEDS: ATORVASTATIN 40 MG TABLET PO SCH (21:34)
[2017-09-02] MEDS: DONEPEZIL 5 MG TABLET PO SCH (21:35)
[2017-09-03] VITALS: BP 110/61
[2017-09-03] MEDS: IV NS 0.9% 1,000 ML IV PRN (05:23)
[2017-09-03 06:35] LABS: BASOPHILS % (AUTO) 0.4 % (0.0-2.0); EOSINOPHILS % (AUTO) 9.6 % (0.0-6.0); HEMATOCRIT 39 % (39-51); HEMOGLOBIN 12.9 g/dL (13.5-17.5); LYMPHOCYTES # (AUTO) 0.8 /CMM (0.8-4.8); MEAN CORPUSCULAR HEMOGLOBIN 27 PG (26.0-33.0); MEAN CORPUSCULAR HGB CONC 33 g/dl (31.0-36.0); MEAN CORPUSCULAR VOLUME 81 fL (80-96); MONOCYTES # (AUTO) 0.3 /CMM (0.1-1.30); MONOCYTES % (AUTO) 5.8 % (2.0-12.0); NEUTROPHILS # (AUTO) 3.8 /CMM (1.8-8.9); NEUTROPHILS % (AUTO) 70.2 % (43.0-81.0); PLATELET COUNT (AUTO) 172 /CMM (150-450); RDW COEFFICIENT OF VARIATION 18.1 (11.5-15.0); RED BLOOD CELL COUNT(AUTO) 4.87 MIL/uL (4.5-6.0); WHITE BLOOD COUNT (AUTO) 5.4 K/uL (4.3-11.0)
[2017-09-03 06:47] LABS: CHOLESTEROL 102 mg/dL (<200); HDL CHOLESTEROL 29 mg/dL (40-60); LDL 62 mg/dL (0-99); TRIGLYCERIDES 83 mg/dL (30-150)
[2017-09-03 07:12] LABS: CARBON DIOXIDE 26 mmol/L (21-32); CHLORIDE 107 mmol/L (98-107); CREATININE 1.3 mg/dL (0.6-1.3); GLUCOSE 111 mg/dL (74-106); MAGNESIUM 1.8 mg/dL (1.8-2.4); PHOSPHORUS 3.2 mg/dL (2.5-4.9); POTASSIUM 3.7 mmol/L (3.5-5.1); SODIUM SERUM 143 mmol/L (136-145); UREA NITROGEN, BLOOD 23 mg/dL (7-18)
--- NOTE | 2017-09-03 07:23 | NUR ---
TELE/RN NOTES: NO ACUTE CHANGES NOTED DURING THIS SHIFT. REPORT GIVEN TO AM NURSE FOR SHIVANI.
[2017-09-03 08:00] VITALS: BP 130/76
--- NOTE | 2017-09-03 08:00 | NUR ---
TELE1/RN AM SHIFT INITIAL NOTES RECEIVED PT AWAKE IN BED, PT A/O X 3, NO ACUTE CHANGE OF CONDITION NOTED. PT DENIES ANY SYMPTOMS. ON ROOM AIR, SATURATING @ 92%, LUNG SOUNDS CLEAR. WITH ON GOING IV INFUSION OF NS @ 75CC/HR, IV SITE PATENT WITH NO S/S OF INFECTION. PT IS COMFORTABLE AT THIS TIME. SCHEDULED AM MEDS TO BE GIVEN. CL WITHIN REACHED AND SAFETY MAINTAINED. ON GOING MONITORING.
[2017-09-03] MEDS: ASPIRIN 81 MG TAB.CHEW PO SCH (08:25)
[2017-09-03] MEDS: SPIRONOLACTONE 25 MG TABLET PO SCH (08:25)
[2017-09-03] MEDS: MEMANTINE HCL 5 MG TABLET PO SCH ×2 (08:25→17:15)
[2017-09-03] MEDS: MELOXICAM 7.5 MG TABLET PO SCH (08:25)
[2017-09-03] MEDS: PANTOPRAZOLE 40 MG TABLET.DR PO SCH (08:25)
[2017-09-03] MEDS: HEPARIN SODIUM, PORCINE 5000 UNITS/1 ML VIAL SQ SCH ×2 (08:27→21:12)
[2017-09-03 12:00] VITALS: BP 133/64
[2017-09-03 16:00] VITALS: BP 152/89
--- NOTE | 2017-09-03 16:15 | NUR ---
MS1/RN ROUNDS - TRACEE PRATHER UPDATED PT'S CONDITION. PT SEEN & EXAMINED BY TRACEE PRATHER. PT ACUITY DOWNGRADED TO MEDSURG, IV INFUSION CONTINUED. NO ACUTE CHANGE OF CONDITION. MONITORING CONTINUED.
--- NOTE | 2017-09-03 19:20 | NUR ---
MS1/RN AM SHIFT END NOTES ALL NEEDS MET, NO ACUTE CHANGE OF CONDITION NOTED DURING THE SHIFT. WITH ON GOING FLUID IV INFUSION. PT ENDORSED TO PM NURSE TO CONTINUE CARE. CL WITHIN REACHED AND SAFETY MAINTAINED.
[2017-09-03 20:00] VITALS: BP 148/88
[2017-09-03] MEDS: ATORVASTATIN 40 MG TABLET PO SCH (21:10)
[2017-09-03] MEDS: DONEPEZIL 5 MG TABLET PO SCH (21:10)
--- NOTE | 2017-09-03 22:05 | NUR ---
MS RN NOTE PT PULLED OUT IV AND IS REFUSING ANOTHER IV. ENCOURAGED PT TO DRINK FLUIDS. EXPLAINED RISKS AND BENEFITS AND PT STILL REFUSING IV. WILL CONTINUE TO MONITOR.
--- NOTE | 2017-09-04 07:30 | NUR ---
RN M/S INITIAL NOTES: RECEIVED PT IN BED AWAKE, A&O X3. ON ROOM AIR, NO APPARENT DISTRESS NOTED. PT DENIES ANY PAIN OR DISCOMFORT AT THIS TIME. PER PM SHIFT NURSE, PT REFUSES IV AND IV FLUIDS ORDERED. WILL ENCOURAGE FLUID INTAKE. BED IN LOW LOCKED POSITION, CALL LIGHT WITHIN REACH. PLAN OF CARE DISCUSSED WITH PT. WILL CONTINUE TO MONITOR.
[2017-09-04 07:31] LABS: CARBON DIOXIDE 26 mmol/L (21-32); CHLORIDE 108 mmol/L (98-107); GLUCOSE 93 mg/dL (74-106); POTASSIUM 3.7 mmol/L (3.5-5.1); SODIUM SERUM 141 mmol/L (136-145); UREA NITROGEN, BLOOD 17 mg/dL (7-18)
[2017-09-04 07:37] LABS: BASOPHILS % (AUTO) 0.3 % (0.0-2.0); EOSINOPHILS % (AUTO) 10.7 % (0.0-6.0); HEMATOCRIT 36 % (39-51); HEMOGLOBIN 12.1 g/dL (13.5-17.5); LYMPHOCYTES # (AUTO) 0.5 /CMM (0.8-4.8); MEAN CORPUSCULAR HEMOGLOBIN 27 PG (26.0-33.0); MEAN CORPUSCULAR HGB CONC 34 g/dl (31.0-36.0); MEAN CORPUSCULAR VOLUME 80 fL (80-96); MONOCYTES # (AUTO) 0.3 /CMM (0.1-1.30); MONOCYTES % (AUTO) 7.2 % (2.0-12.0); NEUTROPHILS # (AUTO) 3.3 /CMM (1.8-8.9); NEUTROPHILS % (AUTO) 71.8 % (43.0-81.0); PLATELET COUNT (AUTO) 156 /CMM (150-450); RDW COEFFICIENT OF VARIATION 17.5 (11.5-15.0); RED BLOOD CELL COUNT(AUTO) 4.55 MIL/uL (4.5-6.0); WHITE BLOOD COUNT (AUTO) 4.7 K/uL (4.3-11.0)
[2017-09-04 08:00] VITALS: BP 154/87
[2017-09-04] MEDS: MEMANTINE HCL 5 MG TABLET PO SCH ×2 (08:40→16:34)
[2017-09-04] MEDS: SPIRONOLACTONE 25 MG TABLET PO SCH (08:40)
[2017-09-04] MEDS: MELOXICAM 7.5 MG TABLET PO SCH (08:40)
[2017-09-04] MEDS: ASPIRIN 81 MG TAB.CHEW PO SCH (08:40)
[2017-09-04] MEDS: PANTOPRAZOLE 40 MG TABLET.DR PO SCH (08:40)
[2017-09-04] MEDS: HEPARIN SODIUM, PORCINE 5000 UNITS/1 ML VIAL SQ SCH ×2 (08:41→21:07)
[2017-09-04 16:00] VITALS: BP 138/94
--- NOTE | 2017-09-04 19:00 | NUR ---
RN M/S END NOTES: PT IN BED AWAKE, A&O X3. DENIES ANY PAIN OR DISCOMFORT AT THIS TIME. ALL DUE MEDS GIVEN ORDERED WITHOUT DIFFICULTIES. PT REMAINS ON ROOM AIR, SATURATING >95%. NO RESPIRATORY DISTRESS NOTED. BED IN LOW LOCKED POSITION, CALL LIGHT WITHIN REACH. WILL ENDORSE TO PM SHIFT FOR CONTINUITY OF CARE.
[2017-09-04 20:00] VITALS: BP 154/83
[2017-09-04] MEDS: DONEPEZIL 5 MG TABLET PO SCH (21:03)
[2017-09-04] MEDS: ATORVASTATIN 40 MG TABLET PO SCH (21:03)
[2017-09-04] MEDS: CYANOCOBALAMIN 1,000 MCG/ML VIAL IM SCH (21:12)
[2017-09-05] VITALS: BP 132/75
[2017-09-05 04:00] VITALS: BP 154/87
--- NOTE | 2017-09-05 07:15 | NUR ---
MS/RN NOTES RECEIVED PT IN BED, ALERT, ON RA TOLERATING WELL, NO SOB NOTED. NO C/O PAIN. NO IV ACCESS PER PM NURSE ENDORSEMENT, PT REFUSED IV FLUIDS. ENCOURAGED INCREASE PO FLUIDS TOLERATED. PT IS FOR D/C TODAY, AWAITING FOR TRANSPO. SAFETY MEASURES OBSERVED. WILL CONT TO MONITOR
[2017-09-05] MEDS: PANTOPRAZOLE 40 MG TABLET.DR PO SCH (07:47)
[2017-09-05 08:00] VITALS: BP 149/84
[2017-09-05] MEDS: HEPARIN SODIUM, PORCINE 5000 UNITS/1 ML VIAL SQ SCH (08:21)
[2017-09-05] MEDS: MELOXICAM 7.5 MG TABLET PO SCH (08:22)
[2017-09-05] MEDS: ASPIRIN 81 MG TAB.CHEW PO SCH (08:22)
[2017-09-05] MEDS: MEMANTINE HCL 5 MG TABLET PO SCH (08:22)
[2017-09-05] MEDS: SPIRONOLACTONE 25 MG TABLET PO SCH (08:22)
[2017-09-05] MEDS: CYANOCOBALAMIN 1,000 MCG/ML VIAL IM SCH (08:48)
--- NOTE | 2017-09-05 11:15 | NUR ---
RN NOTES LEFT MESSAGE TO BALAJI, PT'S SO REGARDING PT D/C TO SNF, AWAITING TO CALL BACK
--- NOTE | 2017-09-05 11:30 | NUR ---
RN NOTES REPORT GIVEN TO CHRISTOPHER CASTREJON OF [place]
--- NOTE | 2017-09-05 13:00 | NUR ---
RN NOTES RECEIVED CALL BACK FROM BALAJI RUSS), INFORMED HER THAT PT WAS D/C TO SNF ([facility]), PER SO, THEY DON'T AGREE PT TO BE SENT TO SNF. SPOKE WITH PT, STATED, "I WANT TO BE DISCHARGE TO MY HOME, WHERE I CAME FROM." ELECTRIC INSTALLER CRESCENCIO MADE AWARE AND AGREED TO D/C TO HOME. PROJECT ASST, KOREY MADE AWARE
--- NOTE | 2017-09-05 13:30 | NUR ---
RN NOTES SO BALAJI MADE AWARE THAT MD AGREED TO D/C PT TO HOME, P/U WILL BE AT 1400
--- NOTE | 2017-09-05 14:00 | NUR ---
RN D/C NOTES D/C PT TO HOME VIA GURNEY, TRANSPORTED BY AMBULANCE ACCOMPANIED BY 2 EXPLOSIVE OPERATOR SUPERVISOR. IN STABLE CONDITION. NO C/O PAIN. D/C INSTRUCTION GIVEN TO PT/EMT. SAFETY MEASURES OBSERVED AT ALL TIMES. D/C
== END 2017-09-05 14:15 | disposition home or self-care (01) | DRG 73 ==
LOC: ER 10:56 → TELE1 14:15 → MEDSG1 09-03 16:15
PROVIDERS: ADMIT Nurse Practitioner Acute Care; ATTEND Nurse Practitioner Acute Care
DX: G90.8 Other disorders of autonomic nervous system (principal); N17.0 Acute kidney failure with tubular necrosis; E44.0 Moderate protein-calorie malnutrition; E86.0 Dehydration; I27.20 Pulmonary hypertension, unspecified; F03.90 Unspecified dementia, unspecified severity, without behavioral disturbance, psychotic disturbance, mood disturbance, and anxiety; E78.5 Hyperlipidemia, unspecified; I70.90 Unspecified atherosclerosis; Z68.28 Body mass index [BMI] 28.0-28.9, adult; E66.9 Obesity, unspecified; J44.9 Chronic obstructive pulmonary disease, unspecified; D50.9 Iron deficiency anemia, unspecified; H91.10 Presbycusis, unspecified ear; E86.9 Volume depletion, unspecified; I95.9 Hypotension, unspecified; I10 Essential (primary) hypertension; K21.9 Gastro-esophageal reflux disease without esophagitis; Z87.891 Personal history of nicotine dependence
CPT/HCPCS: 36415; 71045-TC; 80048-TC; 80061-TC; 80076-TC; 81000-TC; 83605-TC; 83735-TC; 84100-TC; 84443-TC; 84484-TC; 85025-TC; 85730-TC; 87040-TC; 87081-TC; 87086-TC; 93307-TC; A4606; J1644; J3420; J7030; Z7610

== ENCOUNTER 2018-06-05 12:41 | Inpatient (IN) | payer MEDICARE, MEDICAID ==
[~2018-06-05] VITALS: Ht 185.4 cm; Wt 86.2 kg
[2018-06-05 08:00] VITALS: BP 108/69
[~2018-06-05 12:41] MED LIST changes: +ATEN50TA PO; -ATOR10TA PO; -CARV3.122 PO; +DONE10TA44 PO; +ESOM40CA PO; +FEBU80TA PO; -FURO40TA5 PO; +HYDR-4075 PO; +MELO-107 PO; +MEMA21CA PO; +OLME1TAB40 PO; +OMEG1CAP40 PO; -POTA20TA83 PO; +PRAV40TA3 PO; +SPIR25TA6 PO
--- NOTE | 2018-06-05 12:56 | NUR ---
BIB RA CAME FROM ADULT DAY CARE C/O MID STERNAL CP, NON RADIATING SHARP PAIN /, GIVEN 1 SPRAY OF NITRO & 162 MG OF ASA IN FIELD. UPON ARRIVAL TO ED, CP 2/10 "DULL" PAIN & QUINCY WELL. EKG DONE. PT AAOX4, DENIES SOB, DIZZINESS, N/V, WEAKNESS @ THIS TIME. PT ALSO C/O VITAL & NECK PAIN. PT SEEN & EVAL'D BY DR. RAMOS. PLACED ON BOILER CONTROL ROOM OPERATOR, PACING. WILL CONT TO MONITOR.
[2018-06-05] MEDS ORDERED: NITROGLYCERIN 0.4 MG/TAB BOTTLE SL ONE (13:00)
[2018-06-05] MEDS ORDERED: ASPIRIN 81 MG TAB.CHEW PO ONE (13:00)
[2018-06-05] MEDS ORDERED: ENALAPRILAT INJ (1.25 MG/ML) 1.25 MG/ML VIAL IV PRN (13:00)
[2018-06-05] MEDS ORDERED: ASPIRIN 81 MG TAB.CHEW ONE (13:06)
[2018-06-05] MEDS ORDERED: NITROGLYCERIN 0.4 MG/TAB BOTTLE ONE (13:06)
[2018-06-05 13:10] LABS: BASOPHILS % (AUTO) 0.5 % (0.0-2.0); EOSINOPHILS % (AUTO) 4.5 % (0.0-6.0); HEMATOCRIT 35 % (39-51); HEMOGLOBIN 11.7 g/dL (13.5-17.5); LYMPHOCYTES # (AUTO) 0.6 /CMM (0.8-4.8); LYMPHOCYTES % (AUTO) 9.8 % (20.0-44.0); MEAN CORPUSCULAR HGB CONC 33 g/dl (31.0-36.0); MEAN CORPUSCULAR VOLUME 82 fL (80-96); MONOCYTES # (AUTO) 0.5 /CMM (0.1-1.30); MONOCYTES % (AUTO) 7.9 % (2.0-12.0); NEUTROPHILS # (AUTO) 4.6 /CMM (1.8-8.9); NEUTROPHILS % (AUTO) 77.3 % (43.0-81.0); PLATELET COUNT (AUTO) 167 /CMM (150-450)
--- NOTE | 2018-06-05 13:28 | NUR ---
HELD ENALAPRIL IV, DUE TO BP WITHIN NORMAL RANGE PER ERMD ORDER.
[2018-06-05] MEDS ORDERED: LISI-603 PO (13:29)
[2018-06-05] MEDS ORDERED: CYAN100096 PO (13:29)
[2018-06-05] MEDS ORDERED: ATOR40TA PO (13:29)
[2018-06-05] MEDS ORDERED: POTA8TAB8 PO (13:29)
[2018-06-05] MEDS ORDERED: QUET25TA PO (13:29)
[2018-06-05] MEDS ORDERED: CARV6.252 PO (13:29)
[2018-06-05] MEDS ORDERED: FURO40TA5 PO (13:29)
[2018-06-05 13:33] LABS: CALCIUM, SERUM 8.6 mg/dL (8.5-10.1); CARBON DIOXIDE 26 mmol/L (21-32); CHLORIDE 107 mmol/L (98-107); CREATININE 1.8 mg/dL (0.6-1.3); GLUCOSE 93 mg/dL (74-106); POTASSIUM 4.8 mmol/L (3.5-5.1); SODIUM SERUM 138 mmol/L (136-145); UREA NITROGEN, BLOOD 45 mg/dL (7-18)
[2018-06-05 13:39] LABS: BILIRUBIN,DIRECT 0.1 mg/dL (0.0-0.2); BILIRUBIN,TOTAL 0.4 mg/dL (0.2-1.0)
[2018-06-05 13:40] LABS: ALANINE AMINOTRANSFERASE 13 U/L (12-78); ALKALINE PHOSPHATASE 81 U/L (46-116); ASPARTATE AMINOTRANSFERASE 11 U/L (15-37); LIPASE 229 U/L (73-393); TOTAL PROTEIN, SERUM 6.2 g/dL (6.4-8.2)
--- NOTE | 2018-06-05 13:52 | NUR ---
PT AAOX4, LAYING COMFORTABLY. DENIES CP, SOB, DIZZINESS, N/V, WEAKNESS @ THIS TIME. WILL CONT TO MONITOR.
[2018-06-05] MEDS ORDERED: FUROSEMIDE 40 MG/4 ML VIAL IV ONE (14:00)
[2018-06-05] MEDS ORDERED: FUROSEMIDE 40 MG/4 ML VIAL ONE (14:27)
--- NOTE | 2018-06-05 14:35 | NUR ---
MEDICATED PER ERMD ORDER, PT QUINCY WELL.
--- NOTE | 2018-06-05 15:28 | NUR ---
REPORT GIVEN TO CHRISTOPHER SIMMONS FOR CONT OF CARE.
[2018-06-05 16:00] VITALS: BP_SYST 108; BP_SYST 109; BP_DIAS 69
--- NOTE | 2018-06-05 16:00 | NUR ---
BACKUP OPERATOR NOTES RECEIVED REPORT FROM TARA WHITE AT 1530. PATIENT CAME IN THE UNIT AT 1600 VIA GURNEY. PATIENT AMBULATORY, GOES TO THE BATHROOM BY HIMSELF. NO COMPLAINS OF ANY PAIN OR ANY SOB. ON 2L NC, SATURATION 99%. SKIN IS INTACT. PATIENT ALERT AND ORIENTED X4. HE LIVES AT HOME WITH A FRIEND, NO NO KIDS. CAME FROM ADULT DAY CARE, COMPLAINED OF CHEST PAIN 7/10. HAS A LEFT FOREARM #20 AND RIGHT WRIST #20, BOTH SALINE LOCKED. PATIENT IS HARD OF HEARING, NO HEARING AIDS. BED LOCKED AND IN LOWEST POSITION. CALL LIGHT WITHIN REACH. WILL CONTINUE TO MONITOR PATIENT.
[2018-06-05] MEDS ORDERED: HYDROCODONE/APAP 5/325MG 1 EACH TABLET PO PRN (17:00)
[2018-06-05] MEDS ORDERED: MAGNESIUM HYDROXIDE 30 ML UDC PO PRN (17:00)
[2018-06-05] MEDS ORDERED: ONDANSETRON HCL/PF 4 MG/2 ML VIAL IVP PRN (17:00)
[2018-06-05] MEDS ORDERED: ZOLPIDEM TARTRATE 5 MG TABLET PO PRN (17:00)
[2018-06-05] MEDS ORDERED: Z GUARD REMEDY 2 OZ OINT TP PRN (17:00)
[2018-06-05] MEDS ORDERED: ACETAMINOPHEN 325 MG TABLET PO PRN (17:00)
[2018-06-05] MEDS ORDERED: MAG HYDROX/AL HYDROX/SIMETH 30 ML UDC PO PRN (17:00)
[2018-06-05] MEDS: QUETIAPINE FUMARATE 25 MG TABLET PO SCH (17:49)
[2018-06-05] MEDS: CYANOCOBALAMIN 500 MCG TABLET PO SCH (17:49)
--- NOTE | 2018-06-05 18:57 | NUR ---
RN CLOSING NOTE PATIENT IN BED AWAKE AND ALERT, WATCHING TV. NO COMPLAINS OF ANY PAIN OR SOB SINCE HE CAME IN FROM ER. V PACING ON MONITOR HAS A PACEMAKER. PATIENT IS HARD OF HEARING. ALL MEDS GIVEN AT 1800. BED LOCKED AND IN LOW POSITION. CALL LIGHT WITHIN REACH. WILL ENDORSE TO NOC SHIFT RN
--- NOTE | 2018-06-05 19:25 | NUR ---
CLOTH NAPPING SUPERVISOR NOTE REPORT GIVEN BEDSIDE. NO COMPLAINS OF ANY PAIN OR ANY SOB. NO ACUTE S/S OF DISTRESS. ON 2L NC, SATURATION 99%. SKIN IS INTACT. PATIENT ALERT AND ORIENTED X4. HAS A LEFT FOREARM #20 AND RIGHT WRIST #20, BOTH SALINE LOCKED. NO S/S OF INFECTION/ INFILTRATION. PATIENT IS HARD OF HEARING, NO HEARING AIDS. BED LOCKED AND IN LOWEST POSITION. CALL LIGHT WITHIN REACH. WILL CONTINUE TO MONITOR PATIENT.
[2018-06-05 20:00] VITALS: BP 90/49
[2018-06-06] VITALS: BP 105/60
[2018-06-06 04:00] VITALS: BP 96/45
[2018-06-06] MEDS: PANTOPRAZOLE 40 MG TABLET.DR PO SCH (06:43)
[2018-06-06 06:51] LABS: BASOPHILS % (AUTO) 0.4 % (0.0-2.0); EOSINOPHILS % (AUTO) 5.7 % (0.0-6.0); HEMATOCRIT 34 % (39-51); HEMOGLOBIN 11.6 g/dL (13.5-17.5); LYMPHOCYTES # (AUTO) 0.7 /CMM (0.8-4.8); LYMPHOCYTES % (AUTO) 14.3 % (20.0-44.0); MEAN CORPUSCULAR HGB CONC 34 g/dl (31.0-36.0); MEAN CORPUSCULAR VOLUME 81 fL (80-96); MONOCYTES # (AUTO) 0.3 /CMM (0.1-1.30); MONOCYTES % (AUTO) 7.2 % (2.0-12.0); NEUTROPHILS # (AUTO) 3.3 /CMM (1.8-8.9); NEUTROPHILS % (AUTO) 72.4 % (43.0-81.0); PLATELET COUNT (AUTO) 130 /CMM (150-450); RED BLOOD CELL COUNT(AUTO) 4.27 MIL/uL (4.5-6.0); WHITE BLOOD COUNT (AUTO) 4.5 K/uL (4.3-11.0)
[2018-06-06 06:57] LABS: CALCIUM, SERUM 8.8 mg/dL (8.5-10.1); CARBON DIOXIDE 26 mmol/L (21-32); CHLORIDE 108 mmol/L (98-107); CREATININE 1.6 mg/dL (0.6-1.3); GLUCOSE 104 mg/dL (74-106); MAGNESIUM 2.3 mg/dL (1.8-2.4); PHOSPHORUS 4.2 mg/dL (2.5-4.9); POTASSIUM 4.7 mmol/L (3.5-5.1); SODIUM SERUM 142 mmol/L (136-145); UREA NITROGEN, BLOOD 44 mg/dL (7-18)
[2018-06-06 07:06] LABS: CHOLESTEROL 79 mg/dL (<200); HDL CHOLESTEROL 24 mg/dL (40-60); LDL 41 mg/dL (0-99); TRIGLYCERIDES 92 mg/dL (30-150)
--- NOTE | 2018-06-06 07:10 | NUR ---
SCRATCHER INITIAL NOTE PATIENT SLEEPING IN BED, BUT EASY TO AROUSE. ON 2L VIA NC, NO COMPLAINS OF ANY PAIN OR ANY SOB. NO ACUTE S/S OF DISTRESS. SKIN IS INTACT. PATIENT ALERT AND ORIENTED X4. HAS A LEFT FOREARM #20 AND RIGHT WRIST #20, BOTH SALINE LOCKED. NO S/S OF INFECTION/ INFILTRATION. PATIENT IS HARD OF HEARING, NO HEARING AIDS. BED LOCKED AND IN LOWEST POSITION. CALL LIGHT WITHIN REACH. WILL CONTINUE TO MONITOR PATIENT.
[2018-06-06 08:00] VITALS: BP 121/66
[2018-06-06] MEDS: ASPIRIN 81 MG TAB.CHEW PO SCH (08:55)
[2018-06-06] MEDS: ATORVASTATIN 40 MG TABLET PO SCH (08:55)
[2018-06-06] MEDS: MEMANTINE HCL 5 MG TABLET PO SCH ×2 (08:56→18:03)
[2018-06-06] MEDS: CYANOCOBALAMIN 500 MCG TABLET PO SCH (08:57)
[2018-06-06] MEDS ORDERED: Medication Not On Formulary EA (Omega-3 Fatty Acids/Fish Oil (Omega 3 1,000 Mg Softgel) PO SCH (09:00)
[2018-06-06] MEDS ORDERED: CARVEDILOL 6.25 MG TABLET PO SCH (09:00)
[2018-06-06] MEDS: FUROSEMIDE 40 MG/4 ML VIAL IV SCH ×3 (10:35→18:05)
[2018-06-06 12:00] VITALS: BP 96/50
--- NOTE | 2018-06-06 13:27 | NUR ---
WIRE HANGER NOTES PATIENT ROUNDING WITH CUSHION MAKER. WILL ATTEND ALL ORDERS.
--- NOTE | 2018-06-06 13:34 | NUR ---
DIAMOND FINISHING SUPERVISOR NOTES SPOKE WITH GILBERT RUELAS NP REGARDING PATIENT'S BLOOD PRESSURE 96/50. ORDERED TO HOLD LASIX DUE AT 1400. WILL HOLD LASIX PER AIRPLANE PILOT CHIEF ORDER. WILL CONT TO MONITOR PT CLOSELY.
[2018-06-06 16:00] VITALS: BP 108/60
[2018-06-06] MEDS: CARVEDILOL 6.25 MG TABLET PO SCH (18:03)
[2018-06-06] MEDS: QUETIAPINE FUMARATE 25 MG TABLET PO SCH (18:03)
--- NOTE | 2018-06-06 19:25 | NUR ---
TEST ARCHITECT NOTES RECEIVED PATIENT ALERT ORIENTED X3 WITH EPISODE OF CONFUSION, AMBULATORY, PATIENT IS COMPLAINING LOSS OF JEWELRIES, CHECKED ADMISSION BELONGING LISTS TOGETHER WITH AM NURSE AND AM / NIGHT CHARGE NURSES, NO JEWELRIES LISTED. EXPLAINED TO PATIENT, WILL CONTACT THE FAMILY AND TO RE CHECK IN THE ER, ASSISTED PATIENT BACK TO ROOM. KEPT ON BED COMFORTABLY, ALL SAFETY MEASURES IN PLACED, WILL MONITOR ACCORDINGLY.
[2018-06-06] MEDS ORDERED: KEY,NONCONTROL,TO KEEP IN PYXI 1 EA MC ONE (19:49)
[2018-06-06 20:00] VITALS: BP 125/71
--- NOTE | 2018-06-06 20:58 | NUR ---
BOILERMAKER WELDER CLOSING NOTES PATIENT RESTING IN BED, ON 2L VIA NC, NO COMPLAINS OF ANY PAIN OR ANY SOB. NO ACUTE S/S OF DISTRESS. SKIN IS INTACT. PATIENT ALERT AND ORIENTED X3. HAS A LEFT FOREARM #20 AND RIGHT WRIST #20, BOTH SALINE LOCKED. NO S/S OF INFECTION/ INFILTRATION. PATIENT IS HARD OF HEARING, NO HEARING AIDS. PT LOOKING FOR JEWELRY. PT'S BELONGING'S LIST HAS NO JEWELRY NOTED AND IS SIGNED BY PATIENT. CALLED PATIENT'S ADULT DAY CARE BUT NO ANSWER. ENDORSED TO SENIOR ANALYST NURSE. BED LOCKED AND IN LOWEST POSITION. CALL LIGHT WITHIN REACH. ENDORSED TO SENIOR ANALYST NURSE FOR SHIVANI. Addendum: 06/06/18 at 2101 by SURJIT LAZAR RN NO ACUTE CHANGES THROUGHOUT SHIFT. ALL MD ORDERS ATTENDED.
[2018-06-07] VITALS: BP 101/59
--- NOTE | 2018-06-07 00:30 | NUR ---
SUPERVISOR DOPING NOTES RECEIVED PHONE CALL FROM BALAIJ CASANOVA ASKING FOR UPDATES ABOUT THE PATIENT'S CURRENT CONDITION, INQUIRIES ANSWERED WITH SATISFACTION. JOCELYNE APPRECIATIVE OF THE INFORMATION PROVIDED. RN VERIFIED WITH THE NIECE ABOUT THE JEWELRIES WORN BY THE PATIENT UPON ADMISSION, PER JOCELNYE " MY UNCLE, HAS SEVERAL NECKLACES, AND TWO RINGS, PLEASE CHECK IN THE ER, I WAS WITH HIM DURING ADMISSION ER NURSE SAID WE WILL TAKE CARE OF IT LATER". NOTIFIED CHARGE NURSE REGARDING INFORMATION PROVIDED BY THE JOCELYNE.
--- NOTE | 2018-06-07 02:00 | NUR ---
RN NOTES PATIENT WALKED TO THE STATION ASKING FOR HIS JEWELRY AGAIN, CHARGE NURSE REASSURED THE PATIENT THAT HOSPITAL STAFF WILL DO BEST TO FIND THE JEWELRY.
--- NOTE | 2018-06-07 02:30 | NUR ---
RN NOTES CHARGE NURSE WENT TO ER TO VERIFY THE MISSING JEWELRY CLAIMED BY PATIENT.
--- NOTE | 2018-06-07 03:00 | NUR ---
RN NOTES CHARGE NURSE FOLLOWED UP WITH ER STAFF, CHARGE NURSE SPOKE TO CHRISTOPHER LIM. CHRISTOPHER LIM WILL FOLLOW UP WITH WISAM, THE SIGNEE NURSE OF [facility] IN THE ER. NURSING BOLT LABELER SOPHIA MADE AWARE.
[2018-06-07 04:13] VITALS: BP 103/61
--- NOTE | 2018-06-07 06:15 | NUR ---
SPINDLE REPAIRER NOTES ALL NEEDS ATTENDED, PATIENT ABLE TO REST AND SLEEP WITH SHORT INTERVALS, NO SIGNS OF ACUTE CARDIAC OR RESPIRATORY DISTRESS NOTED, ON 02 AT 2LPM VIA NC TOLERATING WELL SATING 100%. RESTING COMFORTABLY AT THIS TIME, WILL ENDORSE TO AM NURSE FOR CONTINUITY OF CARE.
[2018-06-07 07:00] LABS: BASOPHILS % (AUTO) 0.4 % (0.0-2.0); EOSINOPHILS % (AUTO) 6.6 % (0.0-6.0); HEMATOCRIT 34 % (39-51); HEMOGLOBIN 11.5 g/dL (13.5-17.5); LYMPHOCYTES # (AUTO) 0.5 /CMM (0.8-4.8); LYMPHOCYTES % (AUTO) 12.8 % (20.0-44.0); MEAN CORPUSCULAR HGB CONC 34 g/dl (31.0-36.0); MEAN CORPUSCULAR VOLUME 80 fL (80-96); MONOCYTES # (AUTO) 0.4 /CMM (0.1-1.30); MONOCYTES % (AUTO) 8.5 % (2.0-12.0); NEUTROPHILS % (AUTO) 71.7 % (43.0-81.0); PLATELET COUNT (AUTO) 136 /CMM (150-450); RED BLOOD CELL COUNT(AUTO) 4.22 MIL/uL (4.5-6.0); WHITE BLOOD COUNT (AUTO) 4.2 K/uL (4.3-11.0)
[2018-06-07 07:15] LABS: ALANINE AMINOTRANSFERASE 10 U/L (12-78); ALBUMIN 2.8 g/dL (3.4-5.0); ALKALINE PHOSPHATASE 75 U/L (46-116); ASPARTATE AMINOTRANSFERASE 10 U/L (15-37); BILIRUBIN,TOTAL 0.7 mg/dL (0.2-1.0); CALCIUM, SERUM 8.8 mg/dL (8.5-10.1); CARBON DIOXIDE 27 mmol/L (21-32); CHLORIDE 106 mmol/L (98-107); CREATININE 1.7 mg/dL (0.6-1.3); GLUCOSE 109 mg/dL (74-106); MAGNESIUM 2.1 mg/dL (1.8-2.4); PHOSPHORUS 4.4 mg/dL (2.5-4.9); POTASSIUM 4.5 mmol/L (3.5-5.1); SODIUM SERUM 142 mmol/L (136-145); TOTAL PROTEIN, SERUM 5.9 g/dL (6.4-8.2); UREA NITROGEN, BLOOD 43 mg/dL (7-18)
--- NOTE | 2018-06-07 07:20 | NUR ---
[facility]AGMAN INITIAL NOTES RECEIVED PATIENT RESTING IN BED, ALERT AND ORIENTED X3, AMBULATORY. ON 2L O2 VIA NC, TOLERATING WELL, NO SOB NOTED, NO SIGNS OF DISTRESS AND NO COMPLAINS OF PAIN AT THIS TIME. IV SITES CDI. VEGETABLE HARVEST MACHINE OPERATOR NURSE ENDORSED MISSING JEWELRY, FAMILY AND CHARGE NURSE AWARE, WILL F/U WITH ER. WILL KEEP IN BED COMFORTABLY, ALL SAFETY MEASURES IN PLACE, WILL MONITOR ACCORDINGLY.
[2018-06-07 08:00] VITALS: BP 103/58
[2018-06-07] MEDS: CYANOCOBALAMIN 500 MCG TABLET PO SCH (08:13)
[2018-06-07] MEDS: PANTOPRAZOLE 40 MG TABLET.DR PO SCH (08:13)
[2018-06-07] MEDS: MEMANTINE HCL 5 MG TABLET PO SCH ×2 (08:13→17:01)
[2018-06-07] MEDS: ATORVASTATIN 40 MG TABLET PO SCH (08:13)
[2018-06-07] MEDS: ASPIRIN 81 MG TAB.CHEW PO SCH (08:14)
[2018-06-07] MEDS: CARVEDILOL 6.25 MG TABLET PO SCH ×2 (08:15→17:01)
[2018-06-07 16:00] VITALS: BP 114/58
--- NOTE | 2018-06-07 16:11 | NUR ---
MS RN NOTES PATIENT'S FRIEND, BALAJI, WHO LIVES WITH THE PATIENT CALLED THE UNIT AND STATED "I CALLED HIS DAYCARE CENTER AND HIS [facility]ARE [facility] TOOK HIS JEWELRY." PATIENT AND CHARGE NURSE NOTIFIED.
[2018-06-07 16:17] VITALS: BP 114/58
[2018-06-07 17:01] VITALS: BP 114/58
[2018-06-07] MEDS: QUETIAPINE FUMARATE 25 MG TABLET PO SCH (17:10)
--- NOTE | 2018-06-07 19:00 | NUR ---
DISCHARGE NOTES PATIENT STABLE, ALERT AND ORIENTED X3, AMBULATORY. ON ROOM AIR, TOLERATING WELL, NO SOB NOTED, NO SIGNS OF DISTRESS AND NO COMPLAINS OF PAIN NOTED. EXIT CARE DONE. DISCHARGE INSTRUCTIONS GIVEN TO PATIENT AND FRIEND AT BEDSIDE. ALL MD ORDERS ATTENDED. ALL PATIENT NEEDS MET. PATIENT HAS A HOME AND LIVES WITH FRIEND QUITA. PATIENT LEFT THE UNIT WITH FRIEND QUITA.
== END 2018-06-07 19:06 | disposition home or self-care (01) | DRG 291 ==
LOC: ER 12:43 → TELE1 16:05 → MEDSG1 06-07 08:30
PROVIDERS: ADMIT Student in an Organized Health Care Education/Training Program; ATTEND Student in an Organized Health Care Education/Training Program
DX: I11.0 Hypertensive heart disease with heart failure (principal); N17.0 Acute kidney failure with tubular necrosis; E44.0 Moderate protein-calorie malnutrition; I50.33 Acute on chronic diastolic (congestive) heart failure; I25.110 Atherosclerotic heart disease of native coronary artery with unstable angina pectoris; I50.32 Chronic diastolic (congestive) heart failure; F03.90 Unspecified dementia, unspecified severity, without behavioral disturbance, psychotic disturbance, mood disturbance, and anxiety; E78.5 Hyperlipidemia, unspecified; E66.9 Obesity, unspecified; I25.10 Atherosclerotic heart disease of native coronary artery without angina pectoris; K21.9 Gastro-esophageal reflux disease without esophagitis; I27.20 Pulmonary hypertension, unspecified; Z68.28 Body mass index [BMI] 28.0-28.9, adult; I48.2 Chronic atrial fibrillation; J44.9 Chronic obstructive pulmonary disease, unspecified; H91.10 Presbycusis, unspecified ear; Z79.899 Other long term (current) drug therapy; Z87.891 Personal history of nicotine dependence; Z79.82 Long term (current) use of aspirin; E04.1 Nontoxic single thyroid nodule; D69.6 Thrombocytopenia, unspecified
CPT/HCPCS: 36415; 71045-TC; 76536-TC; 80048-TC; 80053-TC; 80061-TC; 80076-TC; 83690-TC; 83735-TC; 83880; 84100-TC; 84484-TC; 85025-TC; 87081-TC; 93307-TC; G0378; J1940; J3490

== ENCOUNTER 2020-04-02 22:28 | Inpatient (IN) | payer MEDICARE, OTHER ==
[~2020-04-02] VITALS: Ht 172.7 cm; Wt 72.6 kg
[~2020-04-02 22:28] MED LIST changes: -ATEN50TA PO; +ATOR40TA PO; +CARV6.252 PO; +CYAN100096 PO; -DONE10TA44 PO; +FURO40TA5 PO; -HYDR-4075 PO; +LISI20TA30 PO; -OLME1TAB40 PO; +POTA8TAB8 PO; -PRAV40TA3 PO; +QUET25TA PO
--- NOTE | 2020-04-02 23:00 | NUR ---
PATIENT CAME TO THE ER BED 12 FROM HOME EL C/O GLF. PATIENT IS AAOX1. HX OF DEMENTIA. PATIENT UNABLE TO PROVIDE MEDICAL HISTORY. PATIENT IS BREATHING EVENLY AND UNLABORED ON ROOM AIR. CONNECTED TO THE CENTRIFUGAL SPINNER.
--- NOTE | 2020-04-02 23:10 | NUR ---
PATIENT IS CLEANED. CHANGED INTO NEW GOWN AND NEW SHEETS.
--- NOTE | 2020-04-02 23:15 | NUR ---
BLOOD COLLECTED AND SENT TO THE LAB.
[2020-04-02] MEDS ORDERED: OLANZAPINE 10 MG VIAL IM ONE ×2 (23:28→23:30)
--- NOTE | 2020-04-02 23:29 | NUR ---
UNABLE TO COLLECTED ENOUGH URINE FOR LAB.
[2020-04-02] MEDS ORDERED: IV NS 0.9% 1,000 ML BAG IV ONE (23:30)
--- NOTE | 2020-04-02 23:30 | NUR ---
BLOOD IS COLLECTED BY PHELBOTOMIST.
--- NOTE | 2020-04-02 23:34 | NUR ---
COVID SWAB COLLECTED AND SENT TO THE LAB.
[2020-04-02 23:44] LABS: BASOPHILS # (AUTO) 0.1 /CMM (0.0-0.2); BASOPHILS % (AUTO) 0.6 % (0.0-2.0); EOSINOPHILS % (AUTO) 0.8 % (0.0-6.0); HEMATOCRIT 32 % (39-51); HEMOGLOBIN 10.1 g/dL (13.5-17.5); LYMPHOCYTES # (AUTO) 0.8 /CMM (0.8-4.8); LYMPHOCYTES % (AUTO) 9.3 % (20.0-44.0); MEAN CORPUSCULAR HGB CONC 31 g/dl (31.0-36.0); MEAN CORPUSCULAR VOLUME 71 fL (80-96); MONOCYTES # (AUTO) 0.8 /CMM (0.1-1.30); MONOCYTES % (AUTO) 8.7 % (2.0-12.0); NEUTROPHILS % (AUTO) 80.6 % (43.0-81.0); PLATELET COUNT (AUTO) 331 /CMM (150-450); RED BLOOD CELL COUNT(AUTO) 4.58 MIL/uL (4.5-6.0); WHITE BLOOD COUNT (AUTO) 8.7 K/uL (4.3-11.0)
[2020-04-03] LABS: ALANINE AMINOTRANSFERASE 7 U/L (12-78); ALKALINE PHOSPHATASE 80 U/L (46-116); ASPARTATE AMINOTRANSFERASE 9 U/L (15-37); BILIRUBIN,DIRECT 0.2 mg/dL (0.0-0.2); BILIRUBIN,TOTAL 0.4 mg/dL (0.2-1.0); CALCIUM, SERUM 9.1 mg/dL (8.5-10.1); CARBON DIOXIDE 22 mmol/L (21-32); CHLORIDE 105 mmol/L (98-107); CREATININE 3.6 mg/dL (0.6-1.3); GLUCOSE 108 mg/dL (74-106); POTASSIUM 5.6 mmol/L (3.5-5.1); SODIUM SERUM 139 mmol/L (136-145); TOTAL PROTEIN, SERUM 7.2 g/dL (6.4-8.2)
[2020-04-03 00:05] LABS: UREA NITROGEN, BLOOD 94 mg/dL (7-18)
[2020-04-03 00:14] LABS: SERUM AMMONIA 15 umol/L (11-32)
[2020-04-03] MEDS ORDERED: SODIUM POLYSTYRENE SULFONATE 15 G/60 ML BOTTLE PO ONE (02:00)
[2020-04-03] MEDS ORDERED: SODIUM POLYSTYRENE SULFONATE 15 G/60 ML BOTTLE ONE (02:01)
--- NOTE | 2020-04-03 02:06 | NUR ---
DR. ANDERS SPEAKING WITH DR. BRITTON
--- NOTE | 2020-04-03 02:10 | NUR ---
DR. ANDERS SPEAKING WITH DR. CASON
[2020-04-03] MEDS ORDERED: MAGNESIUM HYDROXIDE 30 ML UDC PO PRN (02:30)
[2020-04-03] MEDS ORDERED: ZOLPIDEM TARTRATE 5 MG TABLET PO PRN (02:30)
[2020-04-03] MEDS ORDERED: Z GUARD REMEDY 2 OZ OINT TP PRN (02:30)
[2020-04-03] MEDS ORDERED: MAG HYDROX/AL HYDROX/SIMETH 30 ML UDC PO PRN (02:30)
[2020-04-03] MEDS ORDERED: ONDANSETRON HCL/PF 4 MG/2 ML VIAL IVP PRN (02:30)
[2020-04-03] MEDS ORDERED: ACETAMINOPHEN 325 MG TABLET PO PRN (02:30)
[2020-04-03 05:25] LABS: OCCULT BLOOD STOOL NEGATIVE (NEGATIVE)
--- NOTE | 2020-04-03 07:44 | NUR ---
REPORT GIVEN TO DARLINE WHITE FOR SHIVANI.
--- NOTE | 2020-04-03 08:06 | NUR ---
patient in bed asleep, hooked to monitor, VSS. will continue to monitor accordingly. call light within reach
--- NOTE | 2020-04-03 08:32 | NUR ---
patient served w breakfast tray. refused to eat. placed tray at bedside
[2020-04-03] MEDS ORDERED: Medication Not On Formulary EA (Omega-3 Fatty Acids/Fish Oil (Omega 3 1,000 Mg Softgel) PO SCH (09:00)
[2020-04-03] MEDS: CARVEDILOL 6.25 MG TABLET PO SCH ×2 (09:00→17:00)
[2020-04-03] MEDS ORDERED: PANTOPRAZOLE 40 MG TABLET.DR PO ONE (09:31)
[2020-04-03] MEDS ORDERED: MEMANTINE HCL 5 MG TABLET ONE ×2 (09:31→18:06)
[2020-04-03] MEDS ORDERED: ATORVASTATIN 40 MG TABLET ONE (09:31)
[2020-04-03] MEDS ORDERED: CARVEDILOL 6.25 MG TABLET ONE (09:31)
[2020-04-03] MEDS ORDERED: ASPIRIN 81 MG TAB.CHEW ONE (09:32)
[2020-04-03] MEDS ORDERED: CYANOCOBALAMIN 500 MCG TABLET ONE (09:32)
[2020-04-03] MEDS: PANTOPRAZOLE 40 MG TABLET.DR PO SCH (09:40)
[2020-04-03] MEDS: MEMANTINE HCL 5 MG TABLET PO SCH ×2 (09:43→18:15)
[2020-04-03] MEDS: ATORVASTATIN 40 MG TABLET PO SCH (09:43)
[2020-04-03] MEDS: CYANOCOBALAMIN 500 MCG TABLET PO SCH (09:43)
[2020-04-03] MEDS: ASPIRIN 81 MG TAB.CHEW PO SCH (09:43)
--- NOTE | 2020-04-03 11:26 | NUR ---
PATIENT IN BED AWAKE, HOOKED TO MONITOR. WILL CONTINUE TO MONITOR ACCORDINGLY. KEPT SAFE AND COMFORTABLE
[2020-04-03] MEDS: IV NS 0.9% 1,000 ML IV PRN (14:00)
--- NOTE | 2020-04-03 14:26 | NUR ---
PATIENT IN BED ASLEEP, EASILY AROUSABLE BY VOICE. HOOKED TO MONITOR. WILL CONTINUE TO MONITOR ACCORDINGLY
[2020-04-03] MEDS ORDERED: CEFTRIAXONE 1GM BAG (ER ONLY) 50 ML IV ONE (15:42)
[2020-04-03] MEDS: CEFTRIAXONE 1 G in IV D5W 50 ML IV SCH (15:45)
--- NOTE | 2020-04-03 16:06 | NUR ---
LAC IV PERIPHERAL LINE INFILTRATED, STARTED A NEW IV PERIPHERAL LINE AT RFA 20G
--- NOTE | 2020-04-03 18:01 | NUR ---
SPOKE TO DR BLACKWOOD, WOULD LIKE TO KNOW PATIENT'S ONCOLOGIST FOR KIDNEY CANCER. NO FAMILY CONTACT NUMBER AT PATIENT DATA AVAILABLE.
--- NOTE | 2020-04-03 18:03 | NUR ---
MADE ADMITTING AWARE. WILL TRY TO LOOK FOR A MOLD YARD WORKER FOR THIS PATIENT
[2020-04-03] MEDS ORDERED: QUETIAPINE FUMARATE 25 MG TABLET ONE (18:05)
[2020-04-03] MEDS: QUETIAPINE FUMARATE 25 MG TABLET PO SCH (18:15)
--- NOTE | 2020-04-03 19:23 | NUR ---
ENDORSEMENT GIVEN TO DRAKE WHITE FOR SHIVANI
--- NOTE | 2020-04-03 19:45 | NUR ---
REC'D REPORT FROM AM SHIFT. PT IN BED 12, REC'D ALERT, AWAKE, AAOX1, NOT IN ACUTE DISTRESS, NO SOB NOTED. PT WITH SITTER FOR SAFETY, PT PENDING INPATIENT BED, IN TRANSITION AREA AT THIS TIME. ALL NEEDS MET, WCTM
[2020-04-04 06:03] LABS: BASOPHILS % (AUTO) 0.3 % (0.0-2.0); EOSINOPHILS % (AUTO) 0.7 % (0.0-6.0); HEMATOCRIT 33 % (39-51); HEMOGLOBIN 10.2 g/dL (13.5-17.5); LYMPHOCYTES # (AUTO) 0.4 /CMM (0.8-4.8); LYMPHOCYTES % (AUTO) 5.2 % (20.0-44.0); MEAN CORPUSCULAR HGB CONC 31 g/dl (31.0-36.0); MEAN CORPUSCULAR VOLUME 71 fL (80-96); MONOCYTES # (AUTO) 0.6 /CMM (0.1-1.30); MONOCYTES % (AUTO) 6.6 % (2.0-12.0); NEUTROPHILS # (AUTO) 7.5 /CMM (1.8-8.9); NEUTROPHILS % (AUTO) 87.2 % (43.0-81.0); PLATELET COUNT (AUTO) 287 /CMM (150-450); RED BLOOD CELL COUNT(AUTO) 4.62 MIL/uL (4.5-6.0); WHITE BLOOD COUNT (AUTO) 8.6 K/uL (4.3-11.0)
--- NOTE | 2020-04-04 06:59 | NUR ---
PT TURNED REPOS, NO ACUTE EVENTS NOTED. 1:1 SITTER FOR SAFETY, VSS. WCTM
[2020-04-04 07:11] LABS: ALANINE AMINOTRANSFERASE 8 U/L (12-78); ALKALINE PHOSPHATASE 79 U/L (46-116); ASPARTATE AMINOTRANSFERASE 14 U/L (15-37); BILIRUBIN,TOTAL 0.6 mg/dL (0.2-1.0); CALCIUM, SERUM 9.5 mg/dL (8.5-10.1); CARBON DIOXIDE 18 mmol/L (21-32); CHLORIDE 106 mmol/L (98-107); GLUCOSE 134 mg/dL (74-106); MAGNESIUM 2.8 mg/dL (1.8-2.4); PHOSPHORUS 4.8 mg/dL (2.5-4.9); POTASSIUM 5.9 mmol/L (3.5-5.1); SODIUM SERUM 139 mmol/L (136-145); TOTAL PROTEIN, SERUM 7.4 g/dL (6.4-8.2)
[2020-04-04 07:17] LABS: UREA NITROGEN, BLOOD 90 mg/dL (7-18)
[2020-04-04] MEDS: PANTOPRAZOLE 40 MG TABLET.DR PO SCH (07:40)
--- NOTE | 2020-04-04 07:40 | NUR ---
RECEIVED REPORT FROM CHRISTOPHER LAKE FOR SHIVANI. PT ASLEEP ON BED EASILY AROUSABLE, NOT IN RESPIRATORY DISTRESS, V/S STABLE, KEPT RESTED AND COMFORTABLE. WILL CONTINUE TO MONITOR.
[2020-04-04 07:51] LABS: CHOLESTEROL 139 mg/dL (<200); CREATINE KINASE, TOTAL 49 U/L (39-308); FERRITIN 243 ng/mL (8-388); HDL CHOLESTEROL 35 mg/dL (40-60); LDL 93 mg/dL (0-99); TRIGLYCERIDES 73 mg/dL (30-150)
[2020-04-04 08:05] LABS: IRON, SERUM 21 ug/dl (50-175); TOTAL IRON BINDING CAPACITY 245 ug/dl (250-450)
[2020-04-04] MEDS ORDERED: ATORVASTATIN 40 MG TABLET ONE (08:57)
[2020-04-04] MEDS ORDERED: CYANOCOBALAMIN 500 MCG TABLET ONE (08:58)
[2020-04-04] MEDS ORDERED: CARVEDILOL 6.25 MG TABLET ONE (08:58)
[2020-04-04] MEDS ORDERED: ASPIRIN 81 MG TAB.CHEW ONE (08:58)
[2020-04-04] MEDS: ASPIRIN 81 MG TAB.CHEW PO SCH (09:07)
[2020-04-04] MEDS: ATORVASTATIN 40 MG TABLET PO SCH (09:08)
[2020-04-04] MEDS: CYANOCOBALAMIN 500 MCG TABLET PO SCH (09:08)
[2020-04-04] MEDS: CARVEDILOL 6.25 MG TABLET PO SCH ×2 (09:08→17:03)
[2020-04-04] MEDS: MEMANTINE HCL 5 MG TABLET PO SCH ×2 (09:49→17:03)
[2020-04-04] MEDS ORDERED: MEMANTINE HCL 5 MG TABLET ONE (10:00)
--- NOTE | 2020-04-04 10:44 | NUR ---
ROOM GIVEN 311-2
[2020-04-04] MEDS ORDERED: SODIUM POLYSTYRENE SULFONATE 15 G/60 ML BOTTLE PO ONE (11:00)
[2020-04-04] MEDS ORDERED: FUROSEMIDE 40 MG/4 ML VIAL IV ONE (11:00)
--- NOTE | 2020-04-04 11:09 | NUR ---
REPORT GIVEN TO CHRISTOPHER EDWARDS FOR SHIVANI.
--- NOTE | 2020-04-04 12:54 | NUR ---
BEH[employer]IORAL [employer]CHO[employer] COUNSELORS ADMITTING NOTES PT ADMITTED TO UNIT FROM E.R @ 1130 VIA GURNEY ACCOMPANIED BY RN MARY. PT IS A//O X1-2. VERBALLY RESPONSIVE, CONFUSED AND DENIES PAIN OR ANY DISCOMFORTS AT THIS TIME. PT ORIENTED TO STAFF AND ROOM. ON ROOM AIR, BREATHING EVEN AND UNLABORED WITH NO SOB NOTED. PT WITH DX OF ARF. PHOTOS OF SKIN ISSUES TAKEN AND FILED IN HIS CHART. PT NOTED WITH PACEMAKER ON LCW AND IV ACCESS PRESENT ON RFA G#20, IVF OF NS AT 75ML/HR INFUSING WELL, NO S/S OF INFILTRATIONS AT SITE NOTED. TELEMONITOR SHOWS A-FIB CONTROLLED AND V-PACING WITH HR ON THE 80'S, NO C/O CARDIAC DISTRESS VOICED. SAFETY MEASURES INITIATED: BED PLACED IN LOWEST LOCKED POSITION W/ SR UP X2. BED ALARM ON AND CALL LIGHT WITHIN EASY REACH WILL CONTINUE TO MONITOR PT ACCORDINGLY.
[2020-04-04] MEDS: SOD FERRIC GLUC 125 MG in IV NS 0.9% 100 ML IV SCH (15:07)
[2020-04-04] MEDS: CEFTRIAXONE 1 G in IV D5W 50 ML IV SCH (15:45)
[2020-04-04 15:55] VITALS: BP 112/64
[2020-04-04 16:44] LABS: CALCIUM, SERUM 9.2 mg/dL (8.5-10.1); CARBON DIOXIDE 19 mmol/L (21-32); CHLORIDE 107 mmol/L (98-107); CREATININE 3.3 mg/dL (0.6-1.3); GLUCOSE 141 mg/dL (74-106); POTASSIUM 5.9 mmol/L (3.5-5.1); SODIUM SERUM 141 mmol/L (136-145)
[2020-04-04 16:45] LABS: UREA NITROGEN, BLOOD 92 mg/dL (7-18)
[2020-04-04] MEDS: QUETIAPINE FUMARATE 25 MG TABLET PO SCH (17:03)
--- NOTE | 2020-04-04 18:47 | NUR ---
COVER MARKER CLOSING NOTES PT ASLEEP IN BED AT THIS TIME, EASILY AWAKENS. HOB ELEVATED. A//O X1-2. VERBALLY RESPONSIVE, CONFUSED ON AND OFF. ON ROOM AIR, BREATHING EVEN AND UNLABORED WITH NO SOB NOTED. TELEMONITOR SHOWS A-FIB CONTROLLED AND V-PACING WITH HR ON THE 80'S, NO C/O CARDIAC DISTRESS VOICED. IV ACCESS PRESENT ON RFA G#20, IVF OF NS AT 75ML/HR INFUSING WELL, NO S/S OF INFILTRATIONS AT SITE NOTED. ALL NEEDS AND CARE PROVIDED WELL. SAFETY MEASURES IN PLACE: BED IN LOWEST LOCKED POSITION W/ SR UP X2. BED ALARM ON AND CALL LIGHT WITHIN EASY REACH. WILL ENDORSE TO MANAGER AIR NURSE FOR SHIVANI.
[2020-04-04 20:00] VITALS: BP 125/74
--- NOTE | 2020-04-04 22:45 | NUR ---
UPDATED FAMILY; FAXED/REQUESTED PACEMAKER RECORDS FROM [facility] spoke with angel martell updated with poc. questions concerns addressed. states pt lives with her usually and has poa document requested she drop off copy states she will try tomorrow. aske about pacemaker information states she has no records that she knows of states she will contact md tomorrow to find out. states patient recieved pacemaker in [facility] ti was done at [facility]. recieved permission to request records from [facility] for pacemaker telephone consent with me and wilfredo rn. [phone] faxed request for records.
[2020-04-05] VITALS (7 sets, daily range): BP systolic 90–126; BP diastolic 50–72
[2020-04-05] MEDS: IV NS 0.9% 1,000 ML IV PRN ×2 (02:15→15:37)
[2020-04-05 06:28] LABS: BASOPHILS % (AUTO) 0.3 % (0.0-2.0); EOSINOPHILS % (AUTO) 0.6 % (0.0-6.0); HEMATOCRIT 32 % (39-51); LYMPHOCYTES # (AUTO) 0.5 /CMM (0.8-4.8); LYMPHOCYTES % (AUTO) 6.5 % (20.0-44.0); MEAN CORPUSCULAR HGB CONC 31 g/dl (31.0-36.0); MEAN CORPUSCULAR VOLUME 71 fL (80-96); MONOCYTES # (AUTO) 0.5 /CMM (0.1-1.30); MONOCYTES % (AUTO) 7.3 % (2.0-12.0); NEUTROPHILS # (AUTO) 6.2 /CMM (1.8-8.9); NEUTROPHILS % (AUTO) 85.3 % (43.0-81.0); PLATELET COUNT (AUTO) 229 /CMM (150-450); RED BLOOD CELL COUNT(AUTO) 4.51 MIL/uL (4.5-6.0); WHITE BLOOD COUNT (AUTO) 7.3 K/uL (4.3-11.0)
[2020-04-05 06:29] LABS: CALCIUM, SERUM 8.9 mg/dL (8.5-10.1); CARBON DIOXIDE 18 mmol/L (21-32); CHLORIDE 112 mmol/L (98-107); GLUCOSE 116 mg/dL (74-106); PHOSPHORUS 5.3 mg/dL (2.5-4.9); POTASSIUM 5.6 mmol/L (3.5-5.1); SODIUM SERUM 143 mmol/L (136-145)
[2020-04-05 06:44] LABS: UREA NITROGEN, BLOOD 90 mg/dL (7-18)
--- NOTE | 2020-04-05 07:32 | NUR ---
WELDING MACHINE OPERATOR OPENING NOTES RECEIVED PT AWAKE IN BED IN NO ACUTE SIGNS OF DISTRESS. HOB ELEVATED. A//O X1-2. VERBALLY RESPONSIVE, DENIES PAIN OR ANY DISCOMFORTS AT THIS TIME. ON ROOM AIR, BREATHING EVEN AND UNLABORED WITH NO SOB NOTED. TELEMONITOR SHOWS A-FIB CONTROLLED AND V-PACING WITH HR ON THE 90'S, NO C/O CARDIAC DISTRESS VOICED. IV ACCESS ON RFA G#20 INTACT WITH IVF OF NS AT 75ML/HR INFUSING WELL, NO S/S OF INFILTRATIONS AT SITE NOTED. SAFETY MEASURES IN PLACE: BED IN LOWEST LOCKED POSITION W/ SR UP X2. BED ALARM ON AND CALL LIGHT WITHIN EASY REACH. WILL CONTINUE TO MONITOR PT.
[2020-04-05 08:07] LABS: IMMUNOGLOBULIN A, SERUM 260 mg/dL (61-437); IMMUNOGLOBULIN G, SERUM 1095 mg/dL (603-1613); IMMUNOGLOBULIN M, SERUM 22 mg/dL (15-143)
[2020-04-05] MEDS: PANTOPRAZOLE 40 MG TABLET.DR PO SCH (08:43)
[2020-04-05] MEDS: MEMANTINE HCL 5 MG TABLET PO SCH ×2 (08:43→18:28)
[2020-04-05] MEDS: CYANOCOBALAMIN 500 MCG TABLET PO SCH (08:43)
[2020-04-05] MEDS: ASPIRIN 81 MG TAB.CHEW PO SCH (08:43)
[2020-04-05] MEDS: ATORVASTATIN 40 MG TABLET PO SCH (08:43)
[2020-04-05] MEDS: CARVEDILOL 6.25 MG TABLET PO SCH ×2 (08:48→16:55)
[2020-04-05 09:56] LABS: PTH, INTACT 48 pg/mL (15-65)
--- NOTE | 2020-04-05 11:09 | NUR ---
Per Charge Nurse, Brina's request, CASE attempted to get in communication with pt.'s responsible green party. CASE attempted to call the roommate, Shavon Oquendo [phone]. However, the number is now disconnected. CASE did google search and called [phone], but no answer. CASE will continue attempts at later time. CASE will be available as needed.
[2020-04-05 13:06] LABS: *SPE A/G RATIO 0.7 (0.7-1.7); *SPE ALBUMIN 2.8 g/dL (2.9-4.4); *SPE ALPHA-1-GLOBULIN 0.4 g/dL (0.0-0.4); *SPE ALPHA-2-GLOBULIN 1.2 g/dL (0.4-1.0); *SPE BETA GLOBULIN 1.1 g/dL (0.7-1.3); *SPE GLOBULIN, TOTAL 3.9 g/dL (2.2-3.9); *SPE M-SPIKE Not Observed g/dL (Not Observed); *SPEGAMMA GLOBULIN 1.2 g/dL (0.4-1.8)
[2020-04-05] MEDS ORDERED: SODIUM POLYSTYRENE SULFONATE 15 G/60 ML BOTTLE PO ONE (14:30)
[2020-04-05] MEDS: SOD FERRIC GLUC 125 MG in IV NS 0.9% 100 ML IV SCH (15:38)
--- NOTE | 2020-04-05 16:11 | NUR ---
RN NOTES CALLED PT'S RESPONSIBLE [employer] QUINTERO AT [facility] # [phone] X2. LEFT MESSAGE TO VOICEMAIL, AWAITING FOR RETURN CALL.
--- NOTE | 2020-04-05 16:26 | NUR ---
RN NOTES PT NOTED WITH HIGH POTASSIUM 5.6. KAYEXALATE 30MG/120ML PO GIVEN AND PT TOLERATED WELL. WILL CONTINUE TO MONITOR.
[2020-04-05] MEDS: CEFTRIAXONE 1 G in IV D5W 50 ML IV SCH (16:46)
--- NOTE | 2020-04-05 17:37 | NUR ---
RN NOTES CALLED PT'S RESPONSIBLE [employer] ROSA QUINTERO AGAIN AT [facility] # [phone] X2. LEFT MESSAGE TO VOICEMAIL, AWAITING FOR RETURN CALL.
[2020-04-05] MEDS: QUETIAPINE FUMARATE 25 MG TABLET PO SCH (18:28)
--- NOTE | 2020-04-05 18:56 | NUR ---
MS RN CLOSING NOTES PT IN BED AWAKE, A//O X1-2 AT THIS TIME. VERBALLY RESPONSIVE WITH PERIODS OF CONFUSION NOTED DURING SHIFT. ON ROOM AIR, BREATHING EVEN AND UNLABORED WITH NO SOB NOTED. PT FOR PACEMAKER GENERATOR REPLACEMENT TOMORROW, CONSENTS OBTAINED VIA TELEPHONE FROM RESPONSIBLE PERSON NAMED STACY MEDEROS. NPO EXCEPT MEDS POST MIDNIGHT TO BE ENFORCED. IV ACCESS PRESENT ON RFA G#20, IVF OF NS AT 75ML/HR INFUSING WELL, NO S/S OF INFILTRATIONS AT SITE NOTED. ALL NEEDS AND CARE PROVIDED WELL. SAFETY MEASURES IN PLACE: BED IN LOWEST LOCKED POSITION W/ SR UP X2. BED ALARM ON AND CALL LIGHT WITHIN EASY REACH. WILL ENDORSE TO [place] TECHNICIAN NURSE FOR SHIVANI.
--- NOTE | 2020-04-05 19:52 | NUR ---
MS RN OPENING NOTES PATIENT A/OX1; OPENS EYES TO NAME. ON ROOM AIR AND TOLERATING WELL WITH NO SOB. NO S/S OF PAIN OR DISCOMFORT AT THIS TIME. IV ON RFA #20; PATENT, INTACT, AND NO INFILTRATION NOTED; NS @ 75 ML/HR. NPO DIET EXCEPT MEDS MAINTAINED. SAFETY MEASURES IN PLACE; BED IN LOWEST LOCKED POSITION, SIDE RAILS UP, CALL LIGHT WITHIN REACH. WILL CONTINUE TO MONITOR.
[2020-04-06] MEDS: HYDROCODONE/APAP 5/325MG TABLET PO PRN ×2 (05:32→15:08)
--- NOTE | 2020-04-06 06:17 | NUR ---
MS RN CLOSING NOTES PATIENT A/OX1; OPENS EYES TO NAME. ON ROOM AIR AND TOLERATING WELL WITH NO SOB. IV ON RFA #20; PATENT, INTACT, AND NO INFILTRATION NOTED; NS @ 75 ML/HR. NPO DIET EXCEPT MEDS MAINTAINED. CHECKLIST COMPLETED FOR PACEMAKER GENERATOR PLACEMENT SURGERY. UPDATED ROSA M ON PATIENT'S STATUS. PATIENT C/O 6/10 PAIN ON L HIP; ADMINISTERED NORCO 5-325MG PO. WILL CONTINUE TO ASSESS FOR PAIN. SAFETY MEASURES IN PLACE; BED IN LOWEST LOCKED POSITION, SIDE RAILS UP, CALL LIGHT WITHIN REACH. WILL ENDORSE SHIVANI TO ONCOMING MORNING RN.
[2020-04-06 06:51] LABS: BASOPHILS % (AUTO) 0.3 % (0.0-2.0); EOSINOPHILS % (AUTO) 1.6 % (0.0-6.0); HEMATOCRIT 30 % (39-51); HEMOGLOBIN 9.2 g/dL (13.5-17.5); LYMPHOCYTES # (AUTO) 0.6 /CMM (0.8-4.8); LYMPHOCYTES % (AUTO) 9.1 % (20.0-44.0); MEAN CORPUSCULAR HGB CONC 31 g/dl (31.0-36.0); MEAN CORPUSCULAR VOLUME 73 fL (80-96); MONOCYTES # (AUTO) 0.5 /CMM (0.1-1.30); MONOCYTES % (AUTO) 8.6 % (2.0-12.0); NEUTROPHILS # (AUTO) 5.1 /CMM (1.8-8.9); NEUTROPHILS % (AUTO) 80.4 % (43.0-81.0); PLATELET COUNT (AUTO) 214 /CMM (150-450); RED BLOOD CELL COUNT(AUTO) 4.09 MIL/uL (4.5-6.0); WHITE BLOOD COUNT (AUTO) 6.4 K/uL (4.3-11.0)
[2020-04-06] MEDS: PANTOPRAZOLE 40 MG TABLET.DR PO SCH (06:57)
--- NOTE | 2020-04-06 07:10 | NUR ---
MS RN OPENING NOTES PATIENT IN BED. A/O X2. NO SOB NOTED. IN NO APPARENT DISTRESS. INSTRUCTED TO REMAIN ON NPO FOR UPCOMING PROCEDURE TODAY. IV ACCESS ON THE RFA #20 G. SAFETY MEASURES MAINTAINED. BED IN LOWEST POSITION, BRAKES LOCKED. SIDE RAILS UP X2. CALL LIGHT WITHIN REACH. WILL CONTINUE PLAN OF CARE.
[2020-04-06 07:23] LABS: ALANINE AMINOTRANSFERASE < 6 U/L (12-78); ALBUMIN 2.5 g/dL (3.4-5.0); ALKALINE PHOSPHATASE 66 U/L (46-116); ASPARTATE AMINOTRANSFERASE 12 U/L (15-37); BILIRUBIN,TOTAL 0.4 mg/dL (0.2-1.0); CALCIUM, SERUM 8.7 mg/dL (8.5-10.1); CARBON DIOXIDE 17 mmol/L (21-32); CHLORIDE 111 mmol/L (98-107); CREATININE 2.4 mg/dL (0.6-1.3); GLUCOSE 110 mg/dL (74-106); MAGNESIUM 2.8 mg/dL (1.8-2.4); PHOSPHORUS 4.2 mg/dL (2.5-4.9); POTASSIUM 4.8 mmol/L (3.5-5.1); SODIUM SERUM 142 mmol/L (136-145); TOTAL PROTEIN, SERUM 6.3 g/dL (6.4-8.2)
[2020-04-06 07:25] LABS: URIC ACID 10.8 mg/dL (2.6-7.2)
[2020-04-06 07:35] LABS: UREA NITROGEN, BLOOD 81 mg/dL (7-18)
[2020-04-06 08:00] VITALS: BP 96/51
[2020-04-06] MEDS: CARVEDILOL 6.25 MG TABLET PO SCH ×2 (08:09→17:55)
[2020-04-06] MEDS: ASPIRIN 81 MG TAB.CHEW PO SCH (08:09)
[2020-04-06] MEDS: CYANOCOBALAMIN 500 MCG TABLET PO SCH (08:09)
[2020-04-06] MEDS: ATORVASTATIN 40 MG TABLET PO SCH (08:09)
[2020-04-06] MEDS: MEMANTINE HCL 5 MG TABLET PO SCH ×2 (08:10→17:54)
[2020-04-06] MEDS ORDERED: LIDOCAINE HCL/MPF 1% 30 ML VIAL IJ ONE (08:38)
[2020-04-06] MEDS ORDERED: ANESTHESIA TRAY IN PYXIS 1 EA TRAY MC ONE (08:38)
--- NOTE | 2020-04-06 10:40 | NUR ---
MS RN NOTES PATIENT WAS BROUGHT DOWN TO OR FOR PACEMAKER GENERATOR PLACEMENT PROCEDURE.
--- NOTE | 2020-04-06 12:24 | NUR ---
MS RN NOTES PATIENT WAS BACK ON HIS ROOM. VS BP 116/68 CT 80 RR 16 TEMP 98.2 SAO2 99%.
--- NOTE | 2020-04-06 12:24 | NUR ---
MS RN NOTES RESUME DIET MD ORDERED.
[2020-04-06] MEDS: SOD FERRIC GLUC 125 MG in IV NS 0.9% 100 ML IV SCH (15:06)
[2020-04-06] MEDS: IV NS 0.9% 1,000 ML IV PRN (15:18)
[2020-04-06] MEDS: CEFTRIAXONE 1 G in IV D5W 50 ML IV SCH (15:30)
[2020-04-06 16:00] VITALS: BP 110/63
[2020-04-06] MEDS: QUETIAPINE FUMARATE 25 MG TABLET PO SCH (17:54)
--- NOTE | 2020-04-06 19:30 | NUR ---
MS RN OPENING NOTE RECEIVED PATIENT IN BED. A/OX2. HARD OF HEARING. TOLERATING ROOM AIR. RESPIRATIONS ARE EVEN AND UNLABORED. NO S/S RESP DISTRESS. C/O PAIN INFORMED WILL BRING SOON ABLE TO. IN NO APPARENT DISTRESS. IV ACCESS IN RFA , INFILTRATED WILL ATTEMPT TO PLACE IV DURING SHIFT. BED IS LOW AND LOCKED, HOB ELEVATED IN [place]IGH [place], SIDE RIALS UP X3, CALL LIGHT WITHIN REACH. BED ALARM ON. WILL CONTINUE TO MONITOR THROUGHOUT SHIFT.
[2020-04-06 20:00] VITALS: BP_SYST 124; BP_SYST 129; BP_DIAS 74
--- NOTE | 2020-04-06 20:42 | NUR ---
MS RN NOTES PATIENT IN BED. A/O X2. AFEBRILE. NO S/S OF RESPIRATORY DISTRESS. NC ON 2LPM. IV ACCESS NOT INTACT. S/P PACEMAKER GENERATOR PLACEMENT. TRIED TO PUT AN ACCESS BUT WASN'T SUCCESSFUL. HELD ROCEPHIN. SAFETY MEASURES MAINTAINED. BED IN LOWEST POSITION, BRAKES LOCKED. SIDE RAILS UP X3. CALL LIGHT WITHIN REACH. WILL ENDORSE TO BACK TACKER FOR SHIVANI.
--- NOTE | 2020-04-06 22:40 | NUR ---
MS RN NOTE TRIED TO PLACE NEW IV ON PATIENT. HE REFUSED. EXPLAINED BENEFITS, CONTINUES TO REFUSE.
--- NOTE | 2020-04-06 23:57 | NUR ---
MS RN NOTE SPOKE WITH PATIENTS FAMILY. 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 WANTS MD TO LOOK INTO IT AND GIVE HER AN UPDATE ABOUT PROGNOSIS. WILL INFORM AM RN TO NOTIFY DAY PROVIDER.
[2020-04-07 06:57] LABS: BASOPHILS % (AUTO) 0.3 % (0.0-2.0); EOSINOPHILS % (AUTO) 0.9 % (0.0-6.0); HEMATOCRIT 29 % (39-51); HEMOGLOBIN 9.2 g/dL (13.5-17.5); LYMPHOCYTES # (AUTO) 0.4 /CMM (0.8-4.8); LYMPHOCYTES % (AUTO) 5.8 % (20.0-44.0); MEAN CORPUSCULAR HGB CONC 32 g/dl (31.0-36.0); MEAN CORPUSCULAR VOLUME 71 fL (80-96); MONOCYTES # (AUTO) 0.4 /CMM (0.1-1.30); NEUTROPHILS # (AUTO) 6.4 /CMM (1.8-8.9); PLATELET COUNT (AUTO) 203 /CMM (150-450); RED BLOOD CELL COUNT(AUTO) 4.12 MIL/uL (4.5-6.0); WHITE BLOOD COUNT (AUTO) 7.4 K/uL (4.3-11.0)
--- NOTE | 2020-04-07 07:29 | NUR ---
MS RN CLOSING NOTE PATIENT RESTING IN BED. A/OX2. TOLERATING ROOM AIR. NO RESP DISTRESS. PATIENT C/O PAIN IN BEGINGING O SHIFT WHE I WENT TO REASSESS AND ASK AGAIN HE REFUSED TO TAKE NELLIE MEDICATION. INFORMED HIM TO LET ME KNOW WHEN HE WOULD LIKE TO TAKE IT. NO DISTRESS. NEW IV ACCESS IN LEFT WRIST #20. BED REMAINS LOW AND LOCKED, HOB ELEVATED IN [place], SIDE RIALS UP X3, CALL LIGHT WITHIN REACH. BED ALARM ON. WILL ENDORSE TO NEXT SHIFT
[2020-04-07 07:38] LABS: CALCIUM, SERUM 8.3 mg/dL (8.5-10.1); CARBON DIOXIDE 19 mmol/L (21-32); CHLORIDE 111 mmol/L (98-107); GLUCOSE 106 mg/dL (74-106); POTASSIUM 4.6 mmol/L (3.5-5.1); SODIUM SERUM 142 mmol/L (136-145); UREA NITROGEN, BLOOD 65 mg/dL (7-18)
[2020-04-07 08:00] VITALS: BP 110/64
[2020-04-07] MEDS: CYANOCOBALAMIN 500 MCG TABLET PO SCH (09:33)
[2020-04-07] MEDS: MEMANTINE HCL 5 MG TABLET PO SCH ×2 (09:33→16:27)
[2020-04-07] MEDS: ATORVASTATIN 40 MG TABLET PO SCH (09:33)
[2020-04-07] MEDS: ASPIRIN 81 MG TAB.CHEW PO SCH (09:34)
[2020-04-07] MEDS: CARVEDILOL 6.25 MG TABLET PO SCH ×2 (09:34→16:27)
[2020-04-07] MEDS: PANTOPRAZOLE 40 MG TABLET.DR PO SCH (09:44)
[2020-04-07] MEDS: SOD FERRIC GLUC 125 MG in IV NS 0.9% 100 ML IV SCH (13:48)
[2020-04-07] MEDS: CEFTRIAXONE 1 G in IV D5W 50 ML IV SCH (15:43)
[2020-04-07 16:00] VITALS: BP 120/74
[2020-04-07 16:27] VITALS: BP 120/74
[2020-04-07] MEDS: QUETIAPINE FUMARATE 25 MG TABLET PO SCH (16:27)
--- NOTE | 2020-04-07 17:30 | NUR ---
Patient discharged to [facility] via ambulance for continued care. VSS, afebrile. No s/s discomfort or distress. Room air. IV removed. All belongings sent with the patient. Sister aware of discharge. Report to RAHUL Grider.
== END 2020-04-07 18:39 | DRG 258 ==
LOC: ER 22:31 → TRANSITION 04-03 03:31 → TELE 04-04 11:20 → MED 04-05 10:58
PROVIDERS: ADMIT Registered Nurse; ATTEND Nurse Practitioner Acute Care
PROC: 0JPT0PZ Removal of Cardiac Rhythm Related Device from Trunk Subcutaneous Tissue and Fascia, Open Approach (ICD-10-PCS; principal; 2020-04-06)
PROC: 0JH606Z Insertion of Pacemaker, Dual Chamber into Chest Subcutaneous Tissue and Fascia, Open Approach (ICD-10-PCS; 2020-04-06)
DX: T82.119A Breakdown (mechanical) of unspecified cardiac electronic device, initial encounter (principal); J15.9 Unspecified bacterial pneumonia; N17.0 Acute kidney failure with tubular necrosis; G93.40 Encephalopathy, unspecified; C64.9 Malignant neoplasm of unspecified kidney, except renal pelvis; C78.02 Secondary malignant neoplasm of left lung; C78.01 Secondary malignant neoplasm of right lung; S06.9X0A Unspecified intracranial injury without loss of consciousness, initial encounter; N18.9 Chronic kidney disease, unspecified; J44.9 Chronic obstructive pulmonary disease, unspecified; I12.9 Hypertensive chronic kidney disease with stage 1 through stage 4 chronic kidney disease, or unspecified chronic kidney disease; W06.XXXA Fall from bed, initial encounter; Y92.003 Bedroom of unspecified non-institutional (private) residence as the place of occurrence of the external cause; E87.5 Hyperkalemia; D63.1 Anemia in chronic kidney disease; F03.90 Unspecified dementia, unspecified severity, without behavioral disturbance, psychotic disturbance, mood disturbance, and anxiety; Y71.2 Prosthetic and other implants, materials and accessory cardiovascular devices associated with adverse incidents; E78.5 Hyperlipidemia, unspecified; M10.9 Gout, unspecified; R55 Syncope and collapse; I35.0 Nonrheumatic aortic (valve) stenosis; Z20.822 Contact with and (suspected) exposure to COVID-19; D50.9 Iron deficiency anemia, unspecified; N28.1 Cyst of kidney, acquired; T46.4X5A Adverse effect of angiotensin-converting-enzyme inhibitors, initial encounter
CPT/HCPCS: 36415; 70450-TC; 71045-TC; 71250-TC; 72125-TC; 80048-TC; 80053-TC; 80061-TC; 80076-TC; 82140-TC; 82272-TC; 82550-TC; 82728-TC; 82784; 83540-TC; 83615-TC; 83735-TC; 83970; 84100-TC; 84155; 84165; 84443-TC; 84484-TC; 84550-TC; 85025-TC; 85730-TC; 86334; 86850-TC; 87040-TC; 87081-TC; 92526; 92611-TC; 93307-TC; 93880-TC; 94799-TC; 97110-TC; 97112-TC; 97116-TC; 97530-TC; C1786; C9803; G0378; J0696; J1940; J2405; J2916; J3490; J7030; J7060; L0172